=== PATIENT | female | born 1945 | race Caucasian/White ===

== ENCOUNTER 2021-06-18 12:36 | Inpatient (IN) | payer MEDICARE, SELFPAY ==
--- NOTE | ~2021-06-18 | US_ITS ---
EXAMINATION: US EXTRACRANIAL CAROTID DUPLEX, BILATERAL CLINICAL INFORMATION: Dizziness. COMPARISON: None TECHNIQUE: Real-time ultrasound and Doppler techniques (integrating B-mode 2-D vascular images, Doppler spectral analysis and color-flow Doppler imaging) were utilized to interrogate the extracranial carotid arteries, the vertebral arteries and proximal subclavian arteries bilaterally. The degree of stenosis is determined by criteria similar to NASCET. FINDINGS: Right Side: 1. There is mild atherosclerotic plaque seen in the bifurcation/proximal ICA region. 2. The common carotid artery PSV proximally is 81.8 cm/s and distally 76.8 cm/s. 3. The proximal internal carotid artery velocities are 54.6 cm/s systolic and 11.2 cm/s diastolic. 4. The proximal external carotid artery PSV is 93.8 cm/s. 5. The vertebral artery shows antegrade flow. 6. The subclavian artery waveforms are normal. Left Side: 1. There is mild atherosclerotic plaque seen in the bifurcation/proximal ICA region. 2. The common carotid artery PSV proximally is 130 cm/s and distally 63.7 cm/s. 3. The proximal internal carotid artery velocities are 61.1 cm/s systolic and 13.7 cm/s diastolic. 4. The proximal external carotid artery PSV is 83.4 cm/s. 5. The vertebral artery shows antegrade flow. 6. The subclavian artery waveforms are normal. US/US carotid duplex BI IMPRESSION: 1. RIGHT: Minimal, non-hemodynamically significant stenosis of the proximal right internal carotid artery corresponding to a 0-49% stenosis by velocity criteria. 2. LEFT: Minimal, non-hemodynamically significant stenosis of the proximal left internal carotid artery corresponding to a 0-49% stenosis by velocity criteria. 3. Both vertebral arteries are patent, show antegrade flow.
--- NOTE | ~2021-06-18 | CT_ITS ---
EXAMINATION: CT HEAD WITHOUT CONTRAST CLINICAL INFORMATION: Dizziness and blurry vision, worse in the past few months. COMPARISON: 11/22/2010 TECHNIQUE: Contiguous axial imaging was performed from the skull base to vertex without intravenous contrast. This CT examination was performed using dose optimization techniques as appropriate, variously including the following: * Automated exposure control * Adjustment of mA and/or kV according to patient size (this includes techniques or standardized protocols for targeted exams where dose is matched to indication/reason for exam; i.e. extremities or head) Use of iterative reconstruction technique DLP: 716 mGy-cm. FINDINGS: There is no evidence of acute intracranial hemorrhage or territorial infarction. No abnormal mass effect or midline shift is seen. Quez[place] to white matter differentiation is well preserved. No extra-axial fluid collections are identified. No hydrocephalus. Proportional prominence of the ventricles and sulcal spaces is consistent with mild volume loss. Patchy periventricular and deep white matter hypoattenuation is consistent with mild small vessel ischemic changes. The osseous structures and soft tissues are normal. The mastoid air cells and visualized portions of the paranasal sinuses are well aerated. CT/CT head/brain wo con IMPRESSION: No acute intracranial pathology. Mild volume loss with small vessel ischemic changes.
--- NOTE | ~2021-06-18 | XR_ITS ---
EXAMINATION: XR HIP, LEFT CLINICAL INFORMATION: Fall with left hip/buttocks posterior pain COMPARISON: None TECHNIQUE: Two views of the left hip. Frontal view of the pelvis. FINDINGS: There is no fracture or dislocation. The femoral heads are well-seated within their acetabula. Mild degenerative changes of the hips with subchondral sclerosis present. The pelvic rim is intact. The sacroiliac joints and pubic symphysis are intact. The bowel gas pattern is unremarkable. XR/XR hip LT w PEL1V IMPRESSION: No acute abnormality. Mild degenerative changes of the hips.
--- NOTE | ~2021-06-18 | XR_ITS ---
EXAMINATION: XR CHEST CLINICAL INFORMATION: Dizziness and blurry vision for months COMPARISON: None TECHNIQUE: Frontal view of the chest was obtained. FINDINGS: Cardiac leads overlie the chest. The lungs are well expanded. There is no focal consolidation, edema, or effusion. No pneumothorax. The cardiomediastinal silhouette is within normal limits of size with a calcified aorta. No acute osseous abnormality. XR/XR chest 1V IMPRESSION: Clear lungs.
[2021-06-18 12:59] VITALS: BP 99/62; PULSE 78; RESP 20; TEMP 36.6; O2SAT 97; BMI 25.0
[2021-06-18 15:40] LABS: MANUAL DIFF FLAG NO
[2021-06-18 15:41] LABS: Basophils Percent Auto 0.3 % (0-2); Eosinophils Percent Auto 0.5 % (0-4); Hematocrit 38.5 % (37-47); Hemoglobin 12.4 g/dl (12.0-16.0); Imm Gran Abs Auto 0.02 X10*3/uL (0.00-0.03); Imm Gran Pct Auto 0.3 % (0.0-0.4); Lymphocytes Percent Auto 16.1 % (20-40); Mean Corpuscular HGB Conc 32.2 g/dl (31.0-35.0); Mean Platelet Volume 10.9 fL (9.4-12.3); Monocytes Absolute Auto 0.4 X10*3/uL (0.1-1.2); Monocytes Percent Auto 6.6 % (2-11); Neutrophils Absolute Auto 4.5 X10*3/uL (2.0-8.3); Neutrophils Percent Auto 76.2 % (45-73); Platelet Count 152 X10*3/uL (160-400); Red Blood Count 4.28 X10*6/uL (4.20-5.50); Red Cell Distribution Width 15.4 % (11.0-16.0); White Blood Count 5.9 X10*3/uL (4.8-10.8)
[2021-06-18 16:08] LABS: Anion Gap 13 (12-20); Blood Urea Nitrogen 23 mg/dL (9-16); Calcium 9.7 mg/dL (8.4-10.2); Carbon Dioxide 25 mmol/L (22-29); Chloride 109 mmol/L (96-108); Estimated Glomerular Filt Rate 40; Glucose Random 91 mg/dL (60-115); Potassium 4.3 mmol/L (3.3-5.1); Sodium 143 mmol/L (135-145)
--- NOTE | 2021-06-18 16:40 | ECG_ITS ---
Test Reason : DIZZINESS Blood Pressure : / mmHG Vent. Rate : 071 BPM Atrial Rate : 071 BPM P-R Int : 164 ms QRS Dur : 082 ms QT Int : 410 ms P-R-T Axes : 065 004 058 degrees QTc Int : 445 ms Normal sinus rhythm Minimal voltage criteria for LVH, may be normal variant Nonspecific ST abnormality Abnormal ECG No previous ECGs available Referred By: Hyacinth Chávez Electronically Signed By:ALEKSANDAR RODRIGUEZ
[2021-06-18 16:59] LABS: Alanine Aminotransferase 11 U/L (0-31); Albumin Level 4.1 g/dL (3.5-5.0); Alkaline Phosphatase 82 U/L (39-117); Aspartate Amino Transferase 17 U/L (5-31); Bilirubin Direct 0.3 mg/dL (0.0-0.5); Bilirubin Total 0.9 mg/dL (0.0-1.0); Magnesium 2.2 mg/dL (1.6-2.6); Total Protein 7.3 g/dL (6.5-8.0)
[2021-06-18] MEDS: 0.9 % Sodium Chloride 1,000 ML 999 ML IVCONT ×3 (17:15→20:51)
--- NOTE | 2021-06-18 17:29 | ED.DIZZY ---
HPI - Dizziness General Chief Complaint: Dizziness Stated Complaint: Dizziness weakness Time Seen by Provider: 06/18/21 16:18 Source: patient and family (Son at bedside) Mode of arrival: ambulatory Limitations: no limitations History of Present Illness HPI Narrative: 76-year-old female with a past medical history of hypothyroidism and dizziness for the past few years presenting to the ED with her son with complaints of acute on chronic dizziness that has been worsening over the past few months. She reports she is unable to describe how the dizziness feels. But it makes her feel really unsteady when she is on her feet. It is daily all the time never goes away per the patient. She reports nothing makes the dizziness better nothing makes the dizziness worse. She reports this morning she was getting some water out of the Fridge and she fell onto her buttocks due to her dizziness. She reports associated blurry vision when she has this dizziness. It is making her ambulation worse and it is inhibiting her ability to safely live at home alone. She reports she has been seen by her PCP for this multiple times and has been prescribed meclizine and salt pills and no symptomatic relief. Patient denies any head trauma, headaches, vomiting, chest pain, shortness of breath, dyspnea on exertion, orthopnea, palpitations, focal weakness, abdominal pain, diarrhea, constipation, black or bloody stools, dysuria, hematuria or any other symptoms complaints or concerns at this time MD elicited complaint: dizziness and difficulty walking Onset (ago): month(s) Timing: gradual onset and constant Severity: similar to previous episodes Description: difficulty walking and ongoing History of similar symptoms: Yes Exacerbating factors: nothing Relieving factors: nothing Associated symptoms: other (Blurry vision) Related Data Allergies Allergy/AdvReac Type Severity Reaction Status Date / Time No Known Allergies Allergy Unverified 08/07/20 16:03 Review of Systems Review of Systems: Constitutional : No Fever, No Chills, No Night Sweats, No Fatigue, No Malaise ENT/Mouth : No Ear Pain, No Nasal Congestion, No Sinus Pain, No sore throat, No Rhinorrhea Eyes: No Eye Pain, No Swelling, No Redness, No Foreign Body, No Discharge, No Vision Changes Cardiovascular : No Chest Pain, No SOB, No Dyspnea on Exertion, No Orthopnea, No Palpitations Respiratory : No Cough, No Sputum, No Wheezing, No Dyspnea Gastrointestinal : No Nausea, No Vomiting, No Diarrhea, No Constipation, No abdominal Pain, No Hematochezia, No Melena Genitourinary : No Dysuria, No Urinary Frequency, No Urinary Incontinence, No Urgency, No Flank Pain Musculoskeletal : Positive left hip/buttocks pain, No Myalgias Skin : No lacerations Neuro : Positive dizziness with difficulty with walking and generalized weakness, No Focal weakness, No Numbness, No Paresthesias, No Loss of Consciousness, No Headache Yes all other systems are reviewed and are negative [facility] Past Medical History Attestation statement: The following information was validated with the patient. Medical History Dizziness Hypothyroid Social History Social History Advance Directives: No Advance Directives Information Provided: No Physical Exam Vital Signs: Vital Signs: Last Vital Signs Temp 97.6 F 06/18/21 20:52 Pulse 70 06/18/21 20:52 Resp 14 06/18/21 20:52 BP 192/75 H 06/18/21 20:52 Pulse Ox 98 06/18/21 20:52 Body Mass Index 25.0 Vital signs have been reviewed as normal and appeared to be correct. Blood pressure normal. Heart rate normal. Respiration rate normal. Temperature normal. Oxygen saturation normal. Appearance: Alert. Oriented X3. No acute distress. Head: Normal external exam. Normocephalic. Atraumatic. Able to rotate head bilaterally. Eyes: PERRLA. EOMI. No nystagmus noted. Conjunctiva and sclera normal. Eyelids normal. Corneal reflex normal. ENT: EAC normal. TM's Normal. Hearing normal. Pharynx normal. Uvula midline. tongue midline. Moist mucous membranes. No trismus noted. No drooling noted. No muffled voice noted. No nystagmus noted. Neck: Normal inspection. Neck supple. FROM. No adenopathy. Trachea midline. Thyroid Normal. No meningeal signs. No neck mass noted. CVS: Normal heart rate and rhythm. Heart sound normal. No murmurs noted. Pulses normal throughout. Respiratory: No respiratory distress. Painless inspiration. Breath sounds normal. No wheezes/rales/rhonchi noted. Chest nontender. No accessory muscle usage noted or decreased air movement noted. Abdomen: Soft and nontender. Bowel sounds normal in all 4 quadrants. No distention noted. No organomegaly noted. No visible injury noted. Back: No CVA tenderness. Full range of motion noted. Skin: Skin warm and dry. Normal skin color. Normal skin turgor. No rashes/lesions/lacerations noted. Extremities: No lower extremity edema. Extremities exhibit normal range of motion. Extremities nontender. Able to shrug shoulders bilaterally and keep up against resistance. Neuro: Oriented X 3. No motor deficit. No sensory deficit. Reflexes normal. Moving all extremities. No focal motor deficits. Cranial nerves II-XI intact bilaterally. Facial strength normal. Normal cognition. Speech normal. Patient very unsteady on her feet although no ataxia is noted. Strength 5/5 throughout. No pronator drift. No tremor noted. No fasciculations noted. No rigidity noted. Muscle tone normal throughout. No asterixis noted. [id number] test normal. Heel to mcdaniels test normal. Hand drop from overhead Misses face. NIHSS score 0. Course Course Course Narrative: 16:40pm - 76-year-old female presenting to the ED with complaints of acute on chronic dizziness that has been present for years worse within the past few months with associated blurry vision and difficulty walking. Today she had a fall due to her dizziness where she landed on her buttocks and is complaining of left hip/buttocks pain. Otherwise denies head injury or loss of consciousness. Is not on any blood thinners. On exam patient is alert and oriented x3. Not in any acute distress. She is able to get up from the bed by herself without any assistance than when she tries to walk she says she feels too dizzy and she feels like she is going to fall over therefore she sat back down although no ataxia was noted. NIH SS score would be 1 although patient symptoms started years and has been worse over the past few months not worse today therefore she is not a tPA candidate at this time. Otherwise lungs clear to auscultation. CV RRR. Abdomen is soft and nontender. No lower extremity edema is noted. Plan: Labs, chest x-ray, EKG, CT scan of brain without contrast, x-ray of left hip, orthostatic vitals. Provide a L of IV fluids then re-evaluate. Reevaluation(s) Reevaluation #1: - labs reviewed and patient's platelet count 152. Chloride 109. BUN 23. Troponin went from 7.6-18.7 although patient does not have any EKG changes and she denies any active chest pain. UA revealed 10-14 white blood cells although has 3+ epithelial cells this may be a dirty catch therefore will wait for urine culture and patient denied any urinary symptoms. - CT scan of brain revealed chronic changes no acute processes were noted. - chest x-ray clear and no acute processes noted. - x-ray of left hip within normal limits no acute processes noted. - patient had positive orthostatic vitals therefore I ordered 3 L of fluids. - due to patient with positive orthostatic hypotension and elevated troponin I spoke to Cardiology Dr. Curiel he reports that the patient can be admitted. I just discussed this patient with Dr. Tovar and she will be admitting at this time. Time: 22:02 [facility] Medical Records Attestation: I reviewed the patient's medical records. Lab Data Attestation: I reviewed the patient's lab results. Result diagrams: 06/18/21 15:36 06/18/21 15:36 Labs: Lab Results 06/18/21 06/18/21 06/18/21 Range/Units 15:36 15:36 17:14 WBC 5.9 (4.8-10.8) X10*3/uL RBC 4.28 (4.20-5.50) X10*6/uL Hgb 12.4 (12.0-16.0) g/dl Hct 38.5 (37-47) % MCV 90.0 (80-98) fL MCH 29.0 (27.0-33.0) pg MCHC 32.2 (31.0-35.0) g/dl RDW 15.4 (11.0-16.0) % Plt Count 152 L (160-400) X10*3/uL MPV 10.9 (9.4-12.3) fL Immature Gran % (Auto) 0.3 (0.0-0.4) % Neut % (Auto) 76.2 H (45-73) % Lymph % (Auto) 16.1 L (20-40) % [place] % (Auto) 6.6 (2-11) % Eos % (Auto) 0.5 (0-4) % Baso % (Auto) 0.3 (0-2) % Lymph # (Auto) 1.0 L (1.2-4.9) X10*3/uL [place] # (Auto) 0.4 (0.1-1.2) X10*3/uL Eos # (Auto) 0.0 (0.0-0.4) X10*3/uL Baso # (Auto) 0.0 (0.0-0.2) X10*3/uL Abs Immat Gran (auto) 0.02 (0.00-0.03) X10*3/uL Absolute Neuts (auto) 4.5 (2.0-8.3) X10*3/uL Absolute Nucleated RBC 0.000 (0.0-0.012) X10*3/uL Nucleated RBC % (auto) 0.0 (0.0-0.2) /100WBC Sodium 143 (135-145) mmol/L Potassium 4.3 (3.3-5.1) mmol/L Chloride 109 H (96-108) mmol/L Carbon Dioxide 25 (22-29) mmol/L Anion Gap 13 (12-20) BUN 23 H (9-16) mg/dL Creatinine 1.30 (0.5-1.4) mg/dL Estim Creat Clear Calc 36.0 Estimated GFR 40 Random Glucose 91 (60-115) mg/dL Calcium 9.7 (8.4-10.2) mg/dL Magnesium 2.2 (1.6-2.6) mg/dL Total Bilirubin 0.9 (0.0-1.0) mg/dL Direct Bilirubin 0.3 (0.0-0.5) mg/dL AST 17 (5-31) U/L ALT 11 (0-31) U/L Alkaline Phosphatase 82 (39-117) U/L Troponin I High Sens 7.6 (<3.5-17.0) ng/L Total Protein 7.3 (6.5-8.0) g/dL Albumin 4.1 (3.5-5.0) g/dL TSH 0.50 (0.32-4.0) uIU/mL Urine Color Urine Appearance Urine pH (5.0-8.0) Ur Specific [place] (1.005-1.025) Urine Protein (NEG-TRACE) MG/DL Urine Glucose (UA) (NEG) MG/DL Urine Ketones (NEG) MG/DL Urine Blood (NEG) Urine Nitrite (NEG) Ur Leukocyte Esterase (NEG) Urine RBC (0) /HPF Urine WBC (0-4) /HPF Ur Squamous Epith Cells /LPF Calcium Oxalate Crystal /LPF Urine Bacteria /LPF Urine Mucus /LPF 06/18/21 06/18/21 Range/Units 18:09 19:55 WBC (4.8-10.8) X10*3/uL RBC (4.20-5.50) X10*6/uL Hgb (12.0-16.0) g/dl Hct (37-47) % MCV (80-98) fL MCH (27.0-33.0) pg MCHC (31.0-35.0) g/dl RDW (11.0-16.0) % Plt Count (160-400) X10*3/uL MPV (9.4-12.3) fL Immature Gran % (Auto) (0.0-0.4) % Neut % (Auto) (45-73) % Lymph % (Auto) (20-40) % [place] % (Auto) (2-11) % Eos % (Auto) (0-4) % Baso % (Auto) (0-2) % Lymph # (Auto) (1.2-4.9) X10*3/uL [place] # (Auto) (0.1-1.2) X10*3/uL Eos # (Auto) (0.0-0.4) X10*3/uL Baso # (Auto) (0.0-0.2) X10*3/uL Abs Immat Gran (auto) (0.00-0.03) X10*3/uL Absolute Neuts (auto) (2.0-8.3) X10*3/uL Absolute Nucleated RBC (0.0-0.012) X10*3/uL Nucleated RBC % (auto) (0.0-0.2) /100WBC Sodium (135-145) mmol/L Potassium (3.3-5.1) mmol/L Chloride (96-108) mmol/L Carbon Dioxide (22-29) mmol/L Anion Gap (12-20) BUN (9-16) mg/dL Creatinine (0.5-1.4) mg/dL Estim Creat Clear Calc Estimated GFR Random Glucose (60-115) mg/dL Calcium (8.4-10.2) mg/dL Magnesium (1.6-2.6) mg/dL Total Bilirubin (0.0-1.0) mg/dL Direct Bilirubin (0.0-0.5) mg/dL AST (5-31) U/L ALT (0-31) U/L Alkaline Phosphatase (39-117) U/L Troponin I High Sens 18.7 H* D (<3.5-17.0) ng/L Total Protein (6.5-8.0) g/dL Albumin (3.5-5.0) g/dL TSH (0.32-4.0) uIU/mL Urine Color STRAW Urine Appearance CLEAR Urine pH 6.0 (5.0-8.0) Ur Specific [place] 1.015 (1.005-1.025) Urine Protein NEG (NEG-TRACE) MG/DL Urine Glucose (UA) NEG (NEG) MG/DL Urine Ketones 15 (NEG) MG/DL Urine Blood TRACE (NEG) Urine Nitrite NEG (NEG) Ur Leukocyte Esterase 1+ H (NEG) Urine RBC 0-2 (0) /HPF Urine WBC 10-14 H (0-4) /HPF Ur Squamous Epith Cells 3+ /LPF Calcium Oxalate Crystal 1+ /LPF Urine Bacteria 2+ /LPF Urine Mucus 2+ /LPF Imaging Data CT scan of brain without contrast/chest x-ray left hip x-ray: Attestation: I personally reviewed and interpreted this imaging study as follows: Radiologist's impression: FINDINGS: There is no evidence of acute intracranial hemorrhage or territorial infarction. No abnormal mass effect or midline shift is seen. [place] to white matter differentiation is well preserved. No extra-axial fluid collections are identified. No hydrocephalus. Proportional prominence of the ventricles and sulcal spaces is consistent with mild volume loss. Patchy periventricular and deep white matter hypoattenuation is consistent with mild small vessel ischemic changes. The osseous structures and soft tissues are normal. The mastoid air cells and visualized portions of the paranasal sinuses are well aerated. ? CT/CT head/brain wo con IMPRESSION: No acute intracranial pathology. Mild volume loss with small vessel ischemic changes. FINDINGS: There is no fracture or dislocation. The femoral heads are well-seated within their acetabula. Mild degenerative changes of the hips with subchondral sclerosis present. The pelvic rim is intact. The sacroiliac joints and pubic symphysis are intact. The bowel gas pattern is unremarkable. XR/XR hip LT w PEL1V IMPRESSION: FINDINGS: Cardiac leads overlie the chest. The lungs are well expanded. There is no focal consolidation, edema, or effusion. No pneumothorax. The cardiomediastinal silhouette is within normal limits of size with a calcified aorta. No acute osseous abnormality. XR/XR chest 1V IMPRESSION: Clear lungs. No acute abnormality. Mild degenerative changes of the hips. ECG Data Attestation: I personally reviewed and interpreted this ECG as follows: ECG interpretation date: 06/18/21 ECG interpretation time: 17:19 Interpretation: EKG normal sinus rhythm with ventricular rate of 71 with minimal voltage criteria for LVH may be normal variant nonspecific ST abnormalities no acute ischemic change are noted. No prior EKGs to compare to at this time. Critical Care Time Critical Care Time Critical Care Time: Yes Total Critical Care Time: 60 Attestation: I personally attest to this time spent taking care of the patient Discharge Plan Discharge Clinical Impression: Orthostatic hypotension, Dizziness, Elevated troponin, Fall Patient Disposition: Admitted As Inpatient
[2021-06-18 17:53] LABS: Troponin-I High Sensitivity 7.6 ng/L (<3.5-17.0)
[2021-06-18 18:08] VITALS: BP 206/88; PULSE 74
[2021-06-18 18:10] VITALS: BP 191/86; BP 69/43; PULSE 80; PULSE 86
[2021-06-18 18:14] VITALS: BP 167/87; PULSE 77; RESP 16; O2SAT 97
[2021-06-18 18:22] LABS: Glucose Urine UA NEG (NEG); Leukocyte Esterase Urine 1+ (NEG); Nitrite Urine NEG (NEG); Specific Gravity - Urine 1.015 (1.005-1.025); UACC Culture Trigger YES; Urine Blood TRACE (NEG); Urine Ketones 15 MG/DL (NEG); Urine Protein NEG (NEG-TRACE)
[2021-06-18 18:24] LABS: Appearance Urine CLEAR; Color Urine STRAW
[2021-06-18 18:35] LABS: Bacteria Urine 2+ /LPF; Calcium Oxalate Crystals Urine 1+ /LPF; Mucus Urine 2+ /LPF; RBC Urine 0-2 /HPF (0); Squamous Epithelial Cell Urine 3+ /LPF
[2021-06-18 19:39] VITALS: BP 197/84; PULSE 75; RESP 16; O2SAT 98
--- NOTE | 2021-06-18 19:47 | PC.NURSE ---
Patient toileted on commode with assistance, 2nd fluid bolus running now. patient continues to endorse dizziness.
[2021-06-18 20:30] LABS: Troponin-I High Sensitivity 18.7 ng/L (<3.5-17.0)
[2021-06-18 20:52] VITALS: BP 192/75; PULSE 70; RESP 14; TEMP 36.4; O2SAT 98
[2021-06-18 23:20] LABS: COVID-19 Test Negative (Negative)
[2021-06-19] VITALS (14 sets, daily range): BP systolic 74–193; BP diastolic 33–91; PULSE 46–110; RESP 16–19; TEMP 36.1–37.1; O2SAT 97–100
[2021-06-19] MEDS: cefTRIAXone sodium 1 GM in 0.9 % Sodium Chloride 50 ML IV (00:42)
[2021-06-19] MEDS: Lactated Ringers 1,000 ML 100 ML IVCONT ×2 (00:42→14:21)
[2021-06-19] MEDS: Heparin Sodium,Porcine 5,000 UNIT/ML VIAL 5000 UNIT SUBCUT ×2 (00:42→13:34)
[2021-06-19] MEDS: 0.9 % Sodium Chloride Flush 3 ML SYRINGE IVFLUSH (00:43)
--- NOTE | 2021-06-19 06:09 | PM.IMHP ---
History of Present Illness Date of Service: 06/18/21 Chief Complaint: Dizziness and fall Female with past medical history of chronic dizziness and hypothyroidism who presents to the hospital after experiencing a fall during a dizzy spell. Patient reports that she has been chronic dizzy but has progressively worsened over the last few months. Denies any vertigo, no chest pain, no palpitations, denies any nausea or vomiting associated with this dizziness, no change in vision and no hearing loss or tinnitus. She reports that today she went to grab something from the Fridge felt very dizzy and weak and brought herself to the floor without falling on her back or injuring her head. Patient reports no loss of consciousness, no palpitations prior or post this episode. She denies any abdominal pain, no urinary symptoms, no diarrhea constipation, reports that she eats and hydrates well but reports that her son does not believe she eats enough, she reports that she has small portions and usually eats half a sandwich for lunch and small amounts for other meals. Patient reports that she takes salt and meclizine for her history of dizziness with no improvement. On arrival to the ED hemodynamically stable but did have significant positive orthostatic vitals her burst pressure on supine was 190/82, blood pressure dropped to 167/70 to on sitting, blood pressure further significantly dropped to 93/45 on standing. Patient received 3 L of IV fluids in the ED and now blood pressures in the 130s over 70s supine To the ED labs were drawn which showed an elevated troponin initially 7.6 and increased to a seen 18.7, positive UA for leukocyte Estrace and WBC Cardiology was consulted and patient will be admitted under observation Imaging including head CT, chest x-ray, and hip pelvic x-ray were all negative Review of system otherwise negative, past medical history as Review of Systems Review of Systems: Yes all other systems are reviewed and are negative [facility] Medical History Dizziness Hypothyroid Social History Household Members: None Housing: House Do you presently have visiting nurse or other home services: No Patient Tobacco Use Status: Never used Tobacco Use of substances other than those prescribed or required for medical reasons: No Have you been hit, kicked, punched, or otherwise hurt by someone within the past year? If so, by whom?: No Do you feel safe in your current relationship?: No Current Relationship Is there a partner from a previous relationship who is making you feel unsafe now?: No Spiritual Healthcare Practices: no Shinto Healthcare Practices: no Cultural Healthcare Practices: no Advance Directives: No Advance Directives Information Provided: No Do you have thoughts of harming others: None Do you have a plan to hurt others: No Plan Recently lost weight without trying: No Nutrition Risks: No Nutritional Risk Patient : No : No Poor oral hygiene: No Meds Allergies Allergy/AdvReac Type Severity Reaction Status Date / Time No Known Allergies Allergy Unverified 08/07/20 16:03 Active Medications: Current Medications Generic Name Dose Route Start Last Admin Trade Name Freq PRN Reason Stop Dose Admin Acetaminophen 650 mg 06/18/21 23:57 Acetaminophen 325 Mg Tablet PO Q6H PRN Pain, Mild (Pain Scale 1-3) Docusate Sodium 100 mg 06/18/21 23:57 Docusate Sodium 100 Mg Capsule PO DAILY PRN Constipation Heparin Sodium (Porcine) 5,000 unit 06/18/21 23:57 06/19/21 00:42 Heparin Sodium,Porcine 5,000 Unit/Ml Vial SUBCUT 5,000 unit Q12H TODD Administration Lactated Ringer's 1,000 mls @ 100 mls/hr 06/18/21 23:57 06/19/21 00:42 Lr IVCONT 100 mls/hr .Q10H TODD Administration Ceftriaxone Sodium 1 gm/ 50 mls @ 100 mls/hr 06/19/21 01:00 06/19/21 01:26 Sodium Chloride IV Infused Q24H TODD Infusion Ondansetron HCl 4 mg 06/18/21 23:57 Ondansetron Hcl 4 Mg/2 Ml Vial IVPUSH Q8H PRN Nausea and Vomiting Sodium Chloride 3 ml 06/19/21 00:00 06/19/21 00:43 0.9 % Sodium Chloride Flush 3 Ml Syringe IVFLUSH 3 ml QSHIFT TODD Administration Home Medications Medication Instructions Recorded Confirmed Last Taken Type levothyroxine 100 mcg tablet 1 tab PO DAILY 06/18/21 06/18/21 Unknown History meclizine 12.5 mg tablet 1 tab PO TID PRN 06/18/21 06/18/21 Unknown History Physical Exam Vital Signs and Narrative: Vital Signs: Last Vital Signs Temp 96.9 F 06/19/21 03:23 Pulse 68 06/19/21 03:23 Resp 16 06/19/21 03:23 BP 193/77 H 06/19/21 03:23 Pulse Ox 99 06/19/21 03:23 Body Mass Index 25.0 Const: General: cooperative and no acute distress Orientation/consciousness: patient oriented x3 Eyes: General: appearance normal, both eyes and all related structures Pupils: Equal, round and reactive pupils present Resp: Effort & Inspection: normal respiratory effort and able to speak in complete sentences Auscultation: clear to auscultation bilaterally Cardio: Rate: regular rate Rhythm: regular rhythm GI: Palpation (GI): Soft to palpation Auscultation: normal bowel sounds Skin: General skin exam: no rashes or lesions noted Neuro: Other: No neurological deficit General: patient oriented x3 Cranial nerves: Yes Equal, round and reactive pupils present Cognition (Neuro): normal cognition Extrem: General: Yes normal to inspection and Yes no pedal edema Results Labs CBC and Chem 7: 06/18/21 15:36 06/18/21 15:36 Labs: Laboratory Results - last 24 hr 06/18/21 06/18/21 06/18/21 15:36 15:36 17:14 MCV 90.0 MCH 29.0 MCHC 32.2 RDW 15.4 Plt Count 152 L MPV 10.9 Immature Gran % (Auto) 0.3 Neut % (Auto) 76.2 H Lymph % (Auto) 16.1 L [place] % (Auto) 6.6 Eos % (Auto) 0.5 Baso % (Auto) 0.3 Lymph # (Auto) 1.0 L [place] # (Auto) 0.4 Eos # (Auto) 0.0 Baso # (Auto) 0.0 Abs Immat Gran (auto) 0.02 Absolute Neuts (auto) 4.5 Absolute Nucleated RBC 0.000 Nucleated RBC % (auto) 0.0 Anion Gap 13 Estim Creat Clear Calc 36.0 Estimated GFR 40 Random Glucose 91 Calcium 9.7 Magnesium 2.2 Total Bilirubin 0.9 Direct Bilirubin 0.3 AST 17 ALT 11 Alkaline Phosphatase 82 Troponin I High Sens 7.6 Total Protein 7.3 Albumin 4.1 TSH 0.50 Urine Color Urine Appearance Urine pH Ur Specific [place]blem Urine Protein Urine Glucose (UA) Urine Ketones Urine Blood Urine Nitrite Ur Leukocyte Esterase Urine RBC Urine WBC Ur Squamous Epith Cells Calcium Oxalate Crystal Urine Bacteria Urine Mucus COVID-19 (MAXINE) COVID-19 Clin Com 06/18/21 06/18/21 06/18/21 18:09 19:55 22:58 MCV MCH MCHC RDW Plt Count MPV Immature Gran % (Auto) Neut % (Auto) Lymph % (Auto) [place] % (Auto) Eos % (Auto) Baso % (Auto) Lymph # (Auto) [place] # (Auto) Eos # (Auto) Baso # (Auto) Abs Immat Gran (auto) Absolute Neuts (auto) Absolute Nucleated RBC Nucleated RBC % (auto) Anion Gap Estim Creat Clear Calc Estimated GFR Random Glucose Calcium Magnesium Total Bilirubin Direct Bilirubin AST ALT Alkaline Phosphatase Troponin I High Sens 18.7 H* D Total Protein Albumin TSH Urine Color STRAW Urine Appearance CLEAR Urine pH 6.0 Ur Specific [place] 1.015 Urine Protein NEG Urine Glucose (UA) NEG Urine Ketones 15 Urine Blood TRACE Urine Nitrite NEG Ur Leukocyte Esterase 1+ H Urine RBC 0-2 Urine WBC 10-14 H Ur Squamous Epith Cells 3+ Calcium Oxalate Crystal 1+ Urine Bacteria 2+ Urine Mucus 2+ COVID-19 (MAXINE) Negative COVID-19 Clin Com See Note ECG Interpretation: Normal sinus rhythm, nonspecific ST abnormalities Imaging Radiologist's Impressions: Impressions Head CT 06/18/21 16:40 IMPRESSION: No acute intracranial pathology. Mild volume loss with small vessel ischemic changes. Chest X-Ray 06/18/21 16:42 IMPRESSION: Clear lungs. Hip/Pelvis X-Ray 06/18/21 16:42 IMPRESSION: No acute abnormality. Mild degenerative changes of the hips. Assessment and Plan (1) Orthostatic hypotension: Status: Acute (2) Dizziness: Status: Acute (3) Elevated troponin: Status: Acute (4) Fall: Status: Acute (5) UTI (urinary tract infection): Status: Acute This is a 76-year-old female with history of chronic dizziness who presents to the hospital after a fall found to have significant orthostatic hypotension # for orthostatic hypotension - status post 3 L of fluid - patient reports good oral intake - will repeat her orthostatics in a.m. - patient has high blood pressure and supine position - if orthostatics still positive, consider r nephrology consult # dizziness - most likely secondary to orthostatic hypotension - will treat with IV fluid - monitor # elevated troponin - unclear etiology - EKG shows no evidence of ACS - admit to telemetry and consult Cardiology # fall - secondary to dizziness - no loss of conscious - physical therapy consult # hypothyroidism - continue levothyroxine DVT prophylaxis: Heparin subQ Quality Stroke Does the patient have a stroke diagnosis?: No VTE Prior VTE?: No VTE Risk Level:: Medical - moderate - high VTE Device Contraindication: Treatment Not Indicated VTE Drug Contraindication: N/A - Med Ordered
[2021-06-19 06:25] LABS: MANUAL DIFF FLAG NO
[2021-06-19 06:57] LABS: Basophils Percent Auto 0.4 % (0-2); Eosinophils Absolute Auto 0.1 X10*3/uL (0.0-0.4); Eosinophils Percent Auto 3.1 % (0-4); Hemoglobin 11.3 g/dl (12.0-16.0); Imm Gran Abs Auto 0.01 X10*3/uL (0.00-0.03); Imm Gran Pct Auto 0.2 % (0.0-0.4); Lymphocytes Percent Auto 21.3 % (20-40); Mean Corpuscular HGB Conc 32.3 g/dl (31.0-35.0); Mean Corpuscular Hemoglobin 28.8 pg (27.0-33.0); Mean Corpuscular Volume 89.1 fL (80-98); Mean Platelet Volume 11.4 fL (9.4-12.3); Monocytes Absolute Auto 0.4 X10*3/uL (0.1-1.2); Monocytes Percent Auto 9.9 % (2-11); Neutrophils Absolute Auto 2.9 X10*3/uL (2.0-8.3); Neutrophils Percent Auto 65.1 % (45-73); Platelet Count 121 X10*3/uL (160-400); Red Blood Count 3.93 X10*6/uL (4.20-5.50); Red Cell Distribution Width 15.1 % (11.0-16.0); White Blood Count 4.5 X10*3/uL (4.8-10.8)
[2021-06-19 06:59] LABS: Anion Gap 10 (12-20); Blood Urea Nitrogen 15 mg/dL (9-16); Calcium 8.5 mg/dL (8.4-10.2); Carbon Dioxide 23 mmol/L (22-29); Chloride 112 mmol/L (96-108); Creatinine Clr Calc Pharmacy 54.3; Estimated Glomerular Filt Rate > 60; Glucose Random 82 mg/dL (60-115); Potassium 3.4 mmol/L (3.3-5.1); Sodium 142 mmol/L (135-145)
--- NOTE | 2021-06-19 10:58 | P.CONCA_ITS ---
History of Present Illness History of Present Illness Date of Service: 06/19/21 Consult reason: other (dizziness) Chief complaint: Orthostatic hypotension, r/o ACS, KORY Narrative: This is a cardiology consultation regarding dizzy spells. Based on review of prior documentation from [facility], it seems that she saw Dr. Calderón from Cardiology in 2018. At that time, according to his notes thought to have orthostatic hypotension. There was also a question of POTS syndrome but not clear if that was ever confirmed or not but it seems to suggest suspected. She has been tried on salt tablets and compression stockings but no major improvement in symptoms according to that. It seems that she also tried gabapentin but that caused some side effects to. In any case patient is still gets symptoms of dizziness which seem primary orthostatic in nature. Otherwise, she states that she was trying to make cereal with milk and at that time, she felt dizzy and she fell down. This seems orthostatic in nature. She does not have any other symptoms like angina or shortness of breath or palpitations or in fact anything else at all. No prior history of any coronary disease myocardial infarction. Review of Systems Review of Systems: Yes all other systems are reviewed and are negative Cardiovascular: Cardiovascular: Reports as per HPI, Reports no additional cardiovascular complaints, Denies acrocyanosis, Denies cool extremities, Denies painful fingertips, Denies chest pain, Denies chest pain at rest, Denies diaphoresis, Denies syncope, Denies irregular heart rhythm, Denies claudication, Denies leg edema, Reports lightheadedness, Denies palpitations and Denies dyspnea Respiratory: Respiratory: Denies dyspnea Neurologic: Denies syncope Endocrine: Endocrine: Denies palpitations [facility] Past Medical History Medical History Dizziness Hypothyroid Family History Family History (Updated 06/19/21 @ 11:01 by Bhavin Curiel MD) Father CAD (coronary artery disease) Social History Social History Household Members: None Housing: House Do you presently have visiting nurse or other home services: No Patient Tobacco Use Status: Never used Tobacco Use of substances other than those prescribed or required for medical reasons: No Currently Displaying Signs/Symptoms of Drug Intoxication Withdrawal: No Have you been hit, kicked, punched, or otherwise hurt by someone within the past year? If so, by whom?: No Do you feel safe in your current relationship?: No Current Relationship Is there a partner from a previous relationship who is making you feel unsafe now?: No Spiritual Healthcare Practices: no Rastafari Healthcare Practices: no Cultural Healthcare Practices: no Advance Directives: No Advance Directives Information Provided: No Do you have thoughts of harming others: None Do you have a plan to hurt others: No Plan Recently lost weight without trying: No Nutrition Risks: No Nutritional Risk Patient : No : No Poor oral hygiene: No Meds Allergies Allergy/AdvReac Type Severity Reaction Status Date / Time No Known Allergies Allergy Unverified 08/07/20 16:03 Active Medications: Current Medications Generic Name Dose Route Start Last Admin Trade Name Freq PRN Reason Stop Dose Admin Acetaminophen 650 mg 06/18/21 23:57 Acetaminophen 325 Mg Tablet PO Q6H PRN Pain, Mild (Pain Scale 1-3) Docusate Sodium 100 mg 06/18/21 23:57 Docusate Sodium 100 Mg Capsule PO DAILY PRN Constipation Heparin Sodium (Porcine) 5,000 unit 06/18/21 23:57 06/19/21 00:42 Heparin Sodium,Porcine 5,000 Unit/Ml Vial SUBCUT 5,000 unit Q12H TODD Administration Lactated Ringer's 1,000 mls @ 100 mls/hr 06/18/21 23:57 06/19/21 10:57 Lr IVCONT Infused .Q10H TODD Infusion Ceftriaxone Sodium 1 gm/ 50 mls @ 100 mls/hr 06/19/21 01:00 06/19/21 01:26 Sodium Chloride IV Infused Q24H TODD Infusion Ondansetron HCl 4 mg 06/18/21 23:57 Ondansetron Hcl 4 Mg/2 Ml Vial IVPUSH Q8H PRN Nausea and Vomiting Sodium Chloride 3 ml 06/19/21 00:00 06/19/21 09:14 0.9 % Sodium Chloride Flush 3 Ml Syringe IVFLUSH Not Given QSHIFT [facility] Home Medications Medication Instructions Recorded Confirmed Last Taken Type levothyroxine 100 mcg tablet 1 tab PO DAILY 06/18/21 06/18/21 Unknown History meclizine 12.5 mg tablet 1 tab PO TID PRN 06/18/21 06/18/21 Unknown History Physical Exam Vital Signs: Vital Signs: Last Vital Signs Temp 97.8 F 06/19/21 07:57 Pulse 110 H 06/19/21 08:59 Resp 18 06/19/21 07:57 BP 153/73 H 06/19/21 10:43 Pulse Ox 97 06/19/21 08:59 Body Mass Index 25.0 Const: General: cooperative and no acute distress HENMT: Other: Unremarkable Neck: Neck: Yes normal visual inspection Chest: Chest palpation & inspection: normal inspection of the chest Resp: Auscultation: clear to auscultation bilaterally, no crackles and no wheezes Cardio: Jugular venous distension: no JVD Palpation: normal PMI Heart sounds: S1 normal heart sound present, S2 normal heart sound present, no gallops, no murmurs and no rubs GI: Palpation (GI): Soft to palpation Back/Spine/Pelvis: Other: unremarkable Skin: General skin exam: no rashes or lesions noted Neuro: Cranial nerves: Yes Other cranial nerve findings present Extrem: General: Yes no clubbing, cyanosis or edema Psych: Mental Status: other Results Labs and Meds Result diagrams: 06/19/21 06:18 06/19/21 06:18 Lab results: Laboratory Results - last 24 hr 06/18/21 06/18/21 06/18/21 15:36 15:36 17:14 WBC 5.9 RBC 4.28 Hgb 12.4 Hct 38.5 MCV 90.0 MCH 29.0 MCHC 32.2 RDW 15.4 Plt Count 152 L MPV 10.9 Immature Gran % (Auto) 0.3 Neut % (Auto) 76.2 H Lymph % (Auto) 16.1 L [place] % (Auto) 6.6 Eos % (Auto) 0.5 Baso % (Auto) 0.3 Lymph # (Auto) 1.0 L [place] # (Auto) 0.4 Eos # (Auto) 0.0 Baso # (Auto) 0.0 Abs Immat Gran (auto) 0.02 Absolute Neuts (auto) 4.5 Absolute Nucleated RBC 0.000 Nucleated RBC % (auto) 0.0 Sodium 143 Potassium 4.3 Chloride 109 H Carbon Dioxide 25 Anion Gap 13 BUN 23 H Creatinine 1.30 Estim Creat Clear Calc 36.0 Estimated GFR 40 Random Glucose 91 Calcium 9.7 Magnesium 2.2 Total Bilirubin 0.9 Direct Bilirubin 0.3 AST 17 ALT 11 Alkaline Phosphatase 82 Troponin I High Sens 7.6 Total Protein 7.3 Albumin 4.1 TSH 0.50 Urine Color Urine Appearance Urine pH Ur Specific [place] Urine Protein Urine Glucose (UA) Urine Ketones Urine Blood Urine Nitrite Ur Leukocyte Esterase Urine RBC Urine WBC Ur Squamous Epith Cells Calcium Oxalate Crystal Urine Bacteria Urine Mucus COVID-19 (MAXINE) COVID-19 Clin Com 06/18/21 06/18/21 06/18/21 18:09 19:55 22:58 WBC RBC Hgb Hct MCV MCH MCHC RDW Plt Count MPV Immature Gran % (Auto) Neut % (Auto) Lymph % (Auto) [place] % (Auto) Eos % (Auto) Baso % (Auto) Lymph # (Auto) [place] # (Auto) Eos # (Auto) Baso # (Auto) Abs Immat Gran (auto) Absolute Neuts (auto) Absolute Nucleated RBC Nucleated RBC % (auto) Sodium Potassium Chloride Carbon Dioxide Anion Gap BUN Creatinine Estim Creat Clear Calc Estimated GFR Random Glucose Calcium Magnesium Total Bilirubin Direct Bilirubin AST ALT Alkaline Phosphatase Troponin I High Sens 18.7 H* D Total Protein Albumin TSH Urine Color STRAW Urine Appearance CLEAR Urine pH 6.0 Ur Specific [place] 1.015 Urine Protein NEG Urine Glucose (UA) NEG Urine Ketones 15 Urine Blood TRACE Urine Nitrite NEG Ur Leukocyte Esterase 1+ H Urine RBC 0-2 Urine WBC 10-14 H Ur Squamous Epith Cells 3+ Calcium Oxalate Crystal 1+ Urine Bacteria 2+ Urine Mucus 2+ COVID-19 (MAXINE) Negative COVID-19 Clin Com See Note 06/19/21 06/19/21 06:18 06:18 WBC 4.5 L RBC 3.93 L Hgb 11.3 L Hct 35.0 L MCV 89.1 MCH 28.8 MCHC 32.3 RDW 15.1 Plt Count 121 L MPV 11.4 Immature Gran % (Auto) 0.2 Neut % (Auto) 65.1 Lymph % (Auto) 21.3 [place] % (Auto) 9.9 Eos % (Auto) 3.1 Baso % (Auto) 0.4 Lymph # (Auto) 1.0 L [place] # (Auto) 0.4 Eos # (Auto) 0.1 Baso # (Auto) 0.0 Abs Immat Gran (auto) 0.01 Absolute Neuts (auto) 2.9 Absolute Nucleated RBC 0.000 Nucleated RBC % (auto) 0.0 Sodium 142 Potassium 3.4 D Chloride 112 H Carbon Dioxide 23 Anion Gap 10 L BUN 15 Creatinine 0.86 Estim Creat Clear Calc 54.3 Estimated GFR > 60 Random Glucose 82 Calcium 8.5 D Magnesium Total Bilirubin Direct Bilirubin AST ALT Alkaline Phosphatase Troponin I High Sens Total Protein Albumin TSH Urine Color Urine Appearance Urine pH Ur Specific [place] Urine Protein Urine Glucose (UA) Urine Ketones Urine Blood Urine Nitrite Ur Leukocyte Esterase Urine RBC Urine WBC Ur Squamous Epith Cells Calcium Oxalate Crystal Urine Bacteria Urine Mucus COVID-19 (MAXINE) COVID-19 Clin Com ECG Interpretation: EKG EKG shows sinus rhythm at 71/Min; voltage criteria for left ventricular hypertrophy but otherwise unremarkable. Imaging Radiologist's impression: Impressions Head CT 06/18/21 16:40 IMPRESSION: No acute intracranial pathology. Mild volume loss with small vessel ischemic changes. Chest X-Ray 06/18/21 16:42 IMPRESSION: Clear lungs. Hip/Pelvis X-Ray 06/18/21 16:42 IMPRESSION: No acute abnormality. Mild degenerative changes of the hips. Assessment and Plan (1) Orthostatic hypotension: Status: Acute (2) Fall: Qualifiers: Encounter type: initial encounter Qualified Code(s): W19.XXXA - Unspecified fall, initial encounter Status: Acute (3) Elevated troponin: Status: Acute Initial high sensitivity troponin 7.6. Repeat is 18.7. EKG without any clear ischemia. Based on orthostatic blood pressures, they are clearly seems to be a drop suggesting orthostatic hypotension. She also has supine hypertension and hence is going to be difficult to treat. Can use compression stockings as she has had in the past. Usual fall precautions to be taken. To sleep somewhat in a incline again to avoid too much supine hypertension. She has had an echocardiogram in 2013 which showed normal LVEF at 60-65% and mild to moderate diastolic dysfunction. Otherwise, with regard to the slight elevation of tr oponin most likely from demand. Does not sound like ACS. We will follow up with you. Procedures Date of Service Date of Service: 06/19/21
--- NOTE | 2021-06-19 11:26 | CA_ITS ---
Transthoracic Echocardiogram Patient (Last, First, Middle): Millicent Osborne, Gender: Female Date of : 1945 Age: 76 Procedure Date: 06/19/2021 Procedure Type: Transthoracic Echocardiogram Location: [facility] [place] Height: 172.72 cm Weight: 74.84 kg BSA: 1.88 m2 Heart Rate: bpm Lock Up Worker: ASIA Referring MD: Bhavin Curiel MD Symptoms: Syncope, orthostatic hypotension Study Quality: Fair ECG Rhythm: Sinus Conclusions: - The left ventricular systolic function is normal. The calculated ejection fraction is 60% by biplane method. - There is mild aortic valve regurgitation. Findings Left Ventricle Normal left ventricular cavity size. There is mildly increased left ventricular wall thickness. The left ventricular systolic function is normal. The calculated ejection fraction is 60% by biplane method. There is no evidence of regional wall motion abnormalities. E/E prime ratio is between 8 and 15 consistent with indeterminate filling pressures. Evidence suggests grade I (mild) diastolic dysfunction. Right Ventricle Normal right ventricular cavity size and systolic function. Atria Both atria are normal in size. Aortic Valve There is a normal trileaflet aortic valve. There is no aortic valve stenosis. There is mild aortic valve regurgitation. Mitral Valve The mitral valve appears normal. There is trace mitral valve regurgitation. There is no mitral valve stenosis. Pulmonic Valve The pulmonic valve was not well visualized. Tricuspid Valve Normal tricuspid valve structure. There is trace tricuspid valve regurgitation. The pulmonary artery systolic pressure is normal. Great Vessels The aortic annulus, sinuses of valsalva, asc aorta, and aortic arch are normal in size. Venous The inferior vena cava is normal in size and collapses greater than 50% with inspiration. Pericardium/Pleural There is no evidence of pericardial effusion. Prior Study Comparison No prior study available for comparison. Measurements 2D Linear Measurements IVSd: 1.08 0.6-0.9/0.6-1.0 cm LVIDd: 3.72 3.9-5.3/4.2-5.9 cm LVIDd Index: 1.98 2.4-3.2/2.2-3.1 cm/m2 LVIDs: 2.42 2.0-3.6 cm LVPWd: 1.02 0.7-1.1 cm Ao Root: 3.30 2.1-3.5 cm LA Diam: 2.50 2.7-3.8/3.0-4.0 cm LAIDs Index: 1.33 1.5-2.3 cm/m2 LV Mass: 151.48 67-162/88-224 g LV Mass Index: 80.58 43-95/49-115 g/m2 LVOT Diam: 2.00 3.0+(-)1.3 cm 2D Systolic Function EF 4C: 55.40 >55% EF 2C: 64.50 >55% EF BiP: 59.70 >55% Mitral Valve MV Pk E: 0.61 MV PK A: 0.92 MV Decel Time: 224.00 E/A: 0.70 E'Lateral: 5.00 E'Medial: 4.13 E/E' Med: 14.70 E/E' Lat: 12.10 PHT: 66.00 MVA PHT: 3.33 Decel [place]: 2.70 Aortic Valve AoV Pk [place]: 1.38 AoV Mn [place]: 0.92 AoV VTI: 0.32 AoV Pk Grad: 8.00 Aov Mn Grad: 4.00 FRANK Cont.VTI: 2.22 AI Pk [place]: 4.92 AI [place]: 3.02 LVOT LVOT Pk [place]: 0.98 LVOT Mn [place]: 0.63 LVOT VTI: 0.23 LVOT Pk Grad: 4.00 LVOT Mn Grad: 2.00 LVOT Diam: 2.00 LVOT Area: 3.14 Diastolic Function MV Pk E: 0.61 MV Pk A: 0.92 E/A: 0.70 E'Medial: 4.13 E/E' Med: 14.70 E' Laterial: 5.00 E/E' Lat: 12.10 Right Ventricle TAPSE (mm): 2.89 Tricuspid Valve TR Pk [place]: 2.50 TR Pk Grad: 25.00 RA Press: 3.00 RVSP: 28.00 Great Vessels Aorta Ao Root-2D: 3.30 2.0-3.7 cm Ao Asc: 3.30 2.1-3.4 cm Ao Arch: 2.90 Updated in Other Vendor System with Status of Final Bhavin Curiel MD electronically signed on 06/19/2021 2:59:44 PM with status of Final
--- NOTE | 2021-06-19 11:52 | P.PNIM_ITS ---
Subjective Subjective Date of Service: 06/19/21 Interval History: Complaining of persistent lightheadedness worse with standing, even at lying flat denies vertigo, no weakness no speech impairment no visual impairment, offers no urinary symptoms. Review of Systems General no headache, no dizziness, no fever chills. CVS no chest pain, no palpitation. Respiratory no cough, no sob. Gastrointestinal no nausea no vomiting, no abdominal pain Physical Exam Vital Signs: Vital Signs: Last Vital Signs Temp 97.8 F 06/19/21 07:57 Pulse 110 H 06/19/21 08:59 Resp 18 06/19/21 07:57 BP 153/73 H 06/19/21 10:43 Pulse Ox 97 06/19/21 08:59 Body Mass Index 25.0 General resting in bed mild distress due to dizziness. Neck supple no JVD. CVS regular rate rhythm, Respiratory lungs clear to auscultation, no respiratory distress, no wheeze, no rhonchi. Gastrointestinal abdomen soft, nontender, bowel sounds audible, no guarding , no rigidity. Extremities no edema. Neuro nonfocal , speech clear. Skin no rash Objective Data Current Medications Generic Name Dose Route Start Last Admin Trade Name Freq PRN Reason Stop Dose Admin Acetaminophen 650 mg 06/18/21 23:57 Acetaminophen 325 Mg Tablet PO Q6H PRN Pain, Mild (Pain Scale 1-3) Docusate Sodium 100 mg 06/18/21 23:57 Docusate Sodium 100 Mg Capsule PO DAILY PRN Constipation Heparin Sodium (Porcine) 5,000 unit 06/18/21 23:57 06/19/21 00:42 Heparin Sodium,Porcine 5,000 Unit/Ml Vial SUBCUT 5,000 unit Q12H TODD Administration Lactated Ringer's 1,000 mls @ 100 mls/hr 06/18/21 23:57 06/19/21 10:57 Lr IVCONT Infused .Q10H TODD Infusion Ceftriaxone Sodium 1 gm/ 50 mls @ 100 mls/hr 06/19/21 01:00 06/19/21 01:26 Sodium Chloride IV Infused Q24H TODD Infusion Ondansetron HCl 4 mg 06/18/21 23:57 Ondansetron Hcl 4 Mg/2 Ml Vial IVPUSH Q8H PRN Nausea and Vomiting Sodium Chloride 3 ml 06/19/21 00:00 06/19/21 09:14 0.9 % Sodium Chloride Flush 3 Ml Syringe IVFLUSH Not Given QSHIFT [facility] Labs CBC & Chem 7: 06/19/21 06:18 06/19/21 06:18 Labs: Laboratory Results - last 24 hr 06/18/21 06/18/21 06/18/21 15:36 15:36 17:14 MCV 90.0 MCH 29.0 MCHC 32.2 RDW 15.4 Plt Count 152 L MPV 10.9 Immature Gran % (Auto) 0.3 Neut % (Auto) 76.2 H Lymph % (Auto) 16.1 L [place] % (Auto) 6.6 Eos % (Auto) 0.5 Baso % (Auto) 0.3 Lymph # (Auto) 1.0 L [place] # (Auto) 0.4 Eos # (Auto) 0.0 Baso # (Auto) 0.0 Abs Immat Gran (auto) 0.02 Absolute Neuts (auto) 4.5 Absolute Nucleated RBC 0.000 Nucleated RBC % (auto) 0.0 Anion Gap 13 Estim Creat Clear Calc 36.0 Estimated GFR 40 Random Glucose 91 Calcium 9.7 Magnesium 2.2 Total Bilirubin 0.9 Direct Bilirubin 0.3 AST 17 ALT 11 Alkaline Phosphatase 82 Troponin I High Sens 7.6 Total Protein 7.3 Albumin 4.1 TSH 0.50 Urine Color Urine Appearance Urine pH Ur Specific [place] Urine Protein Urine Glucose (UA) Urine Ketones Urine Blood Urine Nitrite Ur Leukocyte Esterase Urine RBC Urine WBC Ur Squamous Epith Cells Calcium Oxalate Crystal Urine Bacteria Urine Mucus COVID-19 (MAXINE) COVID-19 Clin Com 06/18/21 06/18/21 06/18/21 18:09 19:55 22:58 MCV MCH MCHC RDW Plt Count MPV Immature Gran % (Auto) Neut % (Auto) Lymph % (Auto) [place] % (Auto) Eos % (Auto) Baso % (Auto) Lymph # (Auto) [place] # (Auto) Eos # (Auto) Baso # (Auto) Abs Immat Gran (auto) Absolute Neuts (auto) Absolute Nucleated RBC Nucleated RBC % (auto) Anion Gap Estim Creat Clear Calc Estimated GFR Random Glucose Calcium Magnesium Total Bilirubin Direct Bilirubin AST ALT Alkaline Phosphatase Troponin I High Sens 18.7 H* D Total Protein Albumin TSH Urine Color STRAW Urine Appearance CLEAR Urine pH 6.0 Ur Specific [place] 1.015 Urine Protein NEG Urine Glucose (UA) NEG Urine Ketones 15 Urine Blood TRACE Urine Nitrite NEG Ur Leukocyte Esterase 1+ H Urine RBC 0-2 Urine WBC 10-14 H Ur Squamous Epith Cells 3+ Calcium Oxalate Crystal 1+ Urine Bacteria 2+ Urine Mucus 2+ COVID-19 (MAXINE) Negative COVID-19 Clin Com See Note 06/19/21 06/19/21 06:18 06:18 MCV 89.1 MCH 28.8 MCHC 32.3 RDW 15.1 Plt Count 121 L MPV 11.4 Immature Gran % (Auto) 0.2 Neut % (Auto) 65.1 Lymph % (Auto) 21.3 [place] % (Auto) 9.9 Eos % (Auto) 3.1 Baso % (Auto) 0.4 Lymph # (Auto) 1.0 L [place] # (Auto) 0.4 Eos # (Auto) 0.1 Baso # (Auto) 0.0 Abs Immat Gran (auto) 0.01 Absolute Neuts (auto) 2.9 Absolute Nucleated RBC 0.000 Nucleated RBC % (auto) 0.0 Anion Gap 10 L Estim Creat Clear Calc 54.3 Estimated GFR > 60 Random Glucose 82 Calcium 8.5 D Magnesium Total Bilirubin Direct Bilirubin AST ALT Alkaline Phosphatase Troponin I High Sens Total Protein Albumin TSH Urine Color Urine Appearance Urine pH Ur Specific [place] Urine Protein Urine Glucose (UA) Urine Ketones Urine Blood Urine Nitrite Ur Leukocyte Esterase Urine RBC Urine WBC Ur Squamous Epith Cells Calcium Oxalate Crystal Urine Bacteria Urine Mucus COVID-19 (MAXINE) COVID-19 Clin Com Microbiology Microbiology Results: Microbiology 06/18/21 18:25 Urine Culture - Preliminary Urine clean catch - Urine dunbar top No growth to date. Assessment and Plan (1) UTI (urinary tract infection): Status: Acute (2) Orthostatic hypotension: Status: Acute (3) Dizziness: Status: Acute (4) Elevated troponin: Status: Acute Assessment and Plan: 76-year-old female with history of chronic dizziness who presents to the hospital after a fall found to have significant orthostatic hypotension # Acute on ch dizziness Patient has chronic dizziness ongoing for several years, was followed by Cardiology and there was question of POTS syndrome , patient was tried on salt tablets and Jonnie stockings with no significant improvement, patient orthostatic studies are consistent with orthostatic hypotension, status post 3 L of IV fluid Will place patient on Jonnie stocking, advised to sit before standing, recommend to sleep with head elevated, continue tele monitor Case discussed with Dr. Curiel, he recommend carotid studies, will discuss use of Florinef/midodrin. # elevated troponin No chest pain, EKG shows no evidence of ACS, seen by Cardiology likely elevated troponin from demand, no further cardiac workup planned at this time. # fall - secondary to dizziness, no loss of conscious, physical therapy recommend short-term rehab to maximum function and safety # hypothyroidism - continue levothyroxine, stable TSH DVT prophylaxis:? Heparin subQ Quality Stroke Does the patient have a stroke diagnosis?: No VTE Prior VTE?: No VTE Risk Level:: Medical - moderate - high VTE Device Contraindication: Treatment Not Indicated VTE Drug Contraindication: N/A - Med Ordered
[2021-06-20] VITALS (12 sets, daily range): BP systolic 90–199; BP diastolic 60–92; PULSE 62–100; RESP 16–18; TEMP 36–36.7; O2SAT 97–99
[2021-06-20] MEDS: Lactated Ringers 1,000 ML 100 ML IVCONT (02:20)
[2021-06-20] MEDS: cefTRIAXone sodium 1 GM in 0.9 % Sodium Chloride 50 ML IV (02:20)
--- NOTE | 2021-06-20 11:07 | P.PNCA_ITS ---
Subjective Subjective Date of Service: 06/20/21 Interval history: Lying in bed and sleepy. Review of Systems Review of Systems Yes all other systems are reviewed and are negative Cardiovascular: Reports as per HPI, Reports no additional cardiovascular complaints, Denies acrocyanosis, Denies cool extremities, Denies painful fingertips, Denies chest pain, Denies chest pain at rest, Denies diaphoresis, Denies syncope, Denies irregular heart rhythm, Denies claudication, Denies leg edema, Reports lightheadedness, Denies palpitations and Denies dyspnea Respiratory: Denies dyspnea Denies syncope Endocrine: Denies palpitations Physical Exam Vital Signs: Last Vital Signs Temp 97.3 F 06/20/21 08:00 Pulse 64 06/20/21 08:00 Resp 16 06/20/21 08:00 BP 168/80 H 06/20/21 08:00 Pulse Ox 97 06/20/21 08:00 Body Mass Index 25.0 Const General: cooperative and no acute distress HENNE Other: Unremarkable Neck Neck: Yes normal visual inspection Chest Chest palpation & inspection: normal inspection of the chest Resp Auscultation: clear to auscultation bilaterally, no crackles and no wheezes Cardio Jugular venous distension: no JVD Palpation: normal PMI Heart sounds: S1 normal heart sound present, S2 normal heart sound present, no gallops, no murmurs and no rubs GI Palpation (GI): Soft to palpation Back/Spine/Pelvis Other: unremarkable Skin General skin exam: no rashes or lesions noted Neuro Cranial nerves: Yes Other cranial nerve findings present Extrem General: Yes no clubbing, cyanosis or edema Psych Mental Status: other Results Labs and Meds Result diagrams: 06/19/21 06:18 06/19/21 06:18 Imaging Radiologist's impression: Impressions Carotid Doppler Study 06/19/21 17:14 IMPRESSION: 1. RIGHT: Minimal, non-hemodynamically significant stenosis of the proximal right internal carotid artery corresponding to a 0-49% stenosis by velocity criteria. 2. LEFT: Minimal, non-hemodynamically significant stenosis of the proximal left internal carotid artery corresponding to a 0-49% stenosis by velocity criteria. 3. Both vertebral arteries are patent, show antegrade flow. Progress Note: A&P Assessment and plan (1) Orthostatic hypotension: Status: Acute (2) Fall: Status: Acute (3) Elevated troponin: Status: Acute Assessment and Plan: Initial high sensitivity troponin 7.6. Repeat is 18.7. EKG without any clear ischemia. Based on orthostatic blood pressures, they are clearly seems to be a drop suggesting orthostatic hypotension. She also has supine hypertension and hence is going to be difficult to treat. Can use compression stockings as she has had in the past. Usual fall precautions to be taken. To sleep somewhat in a inclined position to avoid too much supine hypertension. Start low dose Pr opranlol. Check Cortisol levels. Otherwise, with regard to the slight elevation of troponin most likely from demand. Does not sound like ACS. Fall Risk Details Current Medications: Current Medications Generic Name Dose Route Start Last Admin Trade Name Freq PRN Reason Stop Dose Admin Acetaminophen 650 mg 06/18/21 23:57 Acetaminophen 325 Mg Tablet PO Q6H PRN Pain, Mild (Pain Scale 1-3) Docusate Sodium 100 mg 06/18/21 23:57 Docusate Sodium 100 Mg Capsule PO DAILY PRN Constipation Heparin Sodium (Porcine) 5,000 unit 06/18/21 23:57 06/20/21 00:45 Heparin Sodium,Porcine 5,000 Unit/Ml Vial SUBCUT Not Given Q12H TODD Lactated Ringer's 1,000 mls @ 100 mls/hr 06/18/21 23:57 06/20/21 02:20 Lr IVCONT 100 mls/hr .Q10H TODD Administration Ceftriaxone Sodium 1 gm/ 50 mls @ 100 mls/hr 06/19/21 01:00 06/20/21 04:34 Sodium Chloride IV Infused Q24H TODD Infusion Ondansetron HCl 4 mg 06/18/21 23:57 Ondansetron Hcl 4 Mg/2 Ml Vial IVPUSH Q8H PRN Nausea and Vomiting Sodium Chloride 3 ml 06/19/21 00:00 06/20/21 08:16 0.9 % Sodium Chloride Flush 3 Ml Syringe IVFLUSH Not Given QSHIFT TODD Time Spent With Patient Time: Total time spent is greater than 50% in coordination of care (as documented) at patient's floor/unit and/or counseling patient: Time with patient: less than 15 minutes Progress Note: Quality Stroke Does the patient have a stroke diagnosis?: No Procedures Date of Service Date of Service: 06/20/21
--- NOTE | 2021-06-20 11:25 | HO.PM.IMPN ---
Subjective Subjective Date of Service: 06/20/21 Interval History: Patient noted to be sleepy this morning, later became more awake alert, denies dizziness, noted to have tachycardia when stood up to use the commode, RN noted patient is confused But at present answering questions appropriately. Review of Systems General no headache, no dizziness, no fever chills.? CVS no chest pain, no palpitation.? Respiratory no cough, no sob.? Gastrointestinal no nausea, no vomiting, no abdominal pain Physical Exam Vital Signs: Vital Signs: Last Vital Signs Temp 97.3 F 06/20/21 11:15 Pulse 70 06/20/21 11:15 Resp 18 06/20/21 11:15 BP 160/90 H 06/20/21 11:15 Pulse Ox 98 06/20/21 11:15 Body Mass Index 25.0 General? resting in bed , no acute distress Neck supple no JVD. CVS? regular rate rhythm, Respiratory lungs clear to auscultation, no respiratory distress, no wheeze, no rhonchi. Gastrointestinal abdomen soft, nontender, bowel sounds audible, no guarding , no rigidity. Extremities no edema. Neuro nonfocal , speech clear, face symmetrical, moving all 4 extremities Skin no rash Objective Data Current Medications Generic Name Dose Route Start Last Admin Trade Name Freq PRN Reason Stop Dose Admin Acetaminophen 650 mg 06/18/21 23:57 Acetaminophen 325 Mg Tablet PO Q6H PRN Pain, Mild (Pain Scale 1-3) Docusate Sodium 100 mg 06/18/21 23:57 Docusate Sodium 100 Mg Capsule PO DAILY PRN Constipation Heparin Sodium (Porcine) 5,000 unit 06/18/21 23:57 06/20/21 00:45 Heparin Sodium,Porcine 5,000 Unit/Ml Vial SUBCUT Not Given Q12H TODD Lactated Ringer's 1,000 mls @ 100 mls/hr 06/18/21 23:57 06/20/21 02:20 Lr IVCONT 100 mls/hr .Q10H TODD Administration Ceftriaxone Sodium 1 gm/ 50 mls @ 100 mls/hr 06/19/21 01:00 06/20/21 04:34 Sodium Chloride IV Infused Q24H TODD Infusion Ondansetron HCl 4 mg 06/18/21 23:57 Ondansetron Hcl 4 Mg/2 Ml Vial IVPUSH Q8H PRN Nausea and Vomiting Sodium Chloride 3 ml 06/19/21 00:00 06/20/21 08:16 0.9 % Sodium Chloride Flush 3 Ml Syringe IVFLUSH Not Given QSHIFT TODD Labs CBC & Chem 7: 06/19/21 06:18 06/19/21 06:18 Microbiology Microbiology Results: Microbiology 06/18/21 18:25 Urine Culture - Final Urine clean catch - Urine dunbar top No growth. Assessment and Plan (1) Orthostatic hypotension: Status: Acute (2) Dizziness: Status: Acute Assessment and Plan: 76-year-old female with history of chronic dizziness who presents to the hospital after a fall found to have significant orthostatic hypotension # Acute on chronic dizziness Persistent symptoms of dizziness, seems less pronounced this a.m. ?? Patient has chronic dizziness ongoing for several years, was followed by Cardiology and there was question of POTS syndrome , patient was tried on salt tablets and Jonnie stockings with no significant ?? improvement, patient orthostatic studies are consistent with orthostatic hypotension, status post 4 L of IV fluid ?? cont. Jonnie stocking, advised to sit before standing, recommend to sleep with head elevated, continue tele monitor Carotid ultrasound showed no significant stenosis, echocardiogram showed EF 60% no evidence of regional wall motion abnormality it showed grade 1 mild diastolic dysfunction, CT head negative normal electrolytes, and renal function will obtain cortisol level ?? Case discussed with Dr. Curiel, he recommend propranolol 10 mg twice daily Will obtain Nephro consultation # Initially thought to have UTI but urine culture showed no growth, will DC ceftriaxone # elevated troponin ?? No chest pain, EKG shows no evidence of ACS, echo showed no wall motion abnormality, seen by Cardiology likely elevated troponin from demand, no further cardiac workup planned at this time. # fall - secondary to dizziness, no loss of conscious, physical therapy recommend short-term rehab to maximize function and safety # hypothyroidism - continue levothyroxine, stable TSH DVT prophylaxis:? Heparin subQ Quality Stroke Does the patient have a stroke diagnosis?: No VTE Prior VTE?: No VTE Risk Level:: Medical - moderate - high VTE Device Contraindication: Treatment Not Indicated VTE Drug Contraindication: N/A - Med Ordered
[2021-06-20] MEDS: Heparin Sodium,Porcine 5,000 UNIT/ML VIAL 5000 UNIT SUBCUT (14:14)
--- NOTE | 2021-06-20 15:15 | MHC.CM.PN ---
Addendum entered by Jocelyn Bauer 06/20/21 15:29: TECHNICAL SALES SUPPORT SPECIALIST WILL ATTMPT TO SEE PATIENT TOMORROW AND CALL SON FOR GATHRERING MORE INFORMATION TO COMPLETE CASE MANAGEMENT ASSESSMENT AND DEVELOPE A DISCHARGE PLAN Original Note: NURSE TECHNICAL SALES SUPPORT SPECIALIST NOTE ELECTRONIC MEDICAL RECORD , ER NOTE HISTORY AND PHYSICAL AND NURSES NOTES . TO COMPLETE THIS ASSESSMENT, PATIENT CAME TO THE ER AMBULATORY WITH HER SON WITH HISTORY OF DIZZINESS ACUTE ON CHRONIC DIZZINESS THAT HAD BEEN WORSENING OVER THE PAST FEW MONTHS SHE FEELS UNSTEADY WHEN SHE IS ON HER FEET IT HAPPENS EVERY DAY AND DOES NOT GO AWAY THIS MORNING SHE FELL ON TO HER BUTTOCKS SHE REPORTED SECONDARY TO DIZZINESS AND BLURRY VISION EVALUATED BY PCP ANY TIMES AND PRESCRIED MEDZINE AND SALT PILLS. WHILE IN THE ER PATIENT PER DOCUMENTATION HAD POSITIVE ORTHSTATICS AND ELEVATED TROPONINES WHILE GETTING WATER FROM THE REFRIGERATOR BP WHILE SUPINE 190/82, BLODD PRESSURE DROPPED TO 167/70 WHEN SITTING AND FURTHER DROPPED TO 93/45 WHEN STNDING CO WORKWR WAS UNABLE TO MEET WITH PATIENT SHE WAS VERUANXIOUS, TODAY I ATTEMPTED TO SEE HER SEVERAL TIMES , SHE WAS VERY LETHARGIC AND SPOKE WITH LOW VOICE AND SHE WAS ABLE TO ANSWER TO HER NAME AND ADDRESS BUT THEN WOULD DRIFT OFF AND BE UNABLE TO ANSWER ANY QUESTIONS . I TRIED X2 TO REACH HER SON FOR MORE INFORMATION MESSAGE LEFT WITH MY NAME AND NUMBER REQUESTING CALL BACK
[2021-06-20] MEDS: 0.9 % Sodium Chloride Flush 3 ML SYRINGE IVFLUSH (15:44)
[2021-06-20] MEDS: Propranolol HCL 10 MG TABLET PO (20:46)
[2021-06-21] VITALS (14 sets, daily range): BP systolic 42–198; BP diastolic 30–93; PULSE 58–82; RESP 16–19; TEMP 35.8–36.6; O2SAT 96–99
[2021-06-21] MEDS: Heparin Sodium,Porcine 5,000 UNIT/ML VIAL 5000 UNIT SUBCUT ×2 (00:50→12:57)
[2021-06-21] MEDS: cefTRIAXone sodium 1 GM in 0.9 % Sodium Chloride 50 ML IV (02:35)
[2021-06-21] MEDS: 0.9 % Sodium Chloride Flush 3 ML SYRINGE IVFLUSH ×3 (02:36→17:35)
--- NOTE | 2021-06-21 08:40 | PM.PNNEP ---
Subjective Subjective Date of Service: 06/21/21 Interval history: Patient seen and examined consult dictated Physical Exam Vital Signs: Vital Signs: Last Vital Signs Temp 97.0 F 06/21/21 07:44 Pulse 59 06/21/21 07:44 Resp 19 06/21/21 07:44 BP 160/80 H 06/21/21 07:44 Pulse Ox 98 06/21/21 07:44 Body Mass Index 25.0 Objective Data Labs CBC & Chem 7: 06/19/21 06:18 06/19/21 06:18 Microbiology Microbiology Results: Microbiology 06/18/21 18:25 Urine clean catch - Urine dunbar top Urine Culture - Final No growth. Procedures Date of Service Date of Service: 07/21/21 Assessment & Plan Assessment and plan (1) Supine hypertension: Status: Acute (2) UTI (urinary tract infection): Status: Acute Assessment and Plan: doubt hypovolemia ? POTS syndrome suggest: plasma metanephrine random cortisol level red stocking avoid long acting antihypertensive agents midodrine Time Spent With Patient Time: Total time spent is greater than 50% in coordination of care (as documented) at patient's floor/unit and/or counseling patient: Progress Note: Quality Stroke Does the patient have a stroke diagnosis?: No
[2021-06-21] MEDS: Propranolol HCL 10 MG TABLET PO ×2 (09:05→21:45)
--- NOTE | 2021-06-21 11:11 | HO.PM.IMPN ---
Subjective Subjective Date of Service: 06/21/21 Interval History: Feeling better this a.m. no dizziness while lying,less dizziness with standing, no nausea, no vomiting communicating better this morning. Review of Systems General no headache, no dizziness, no fever chills.? CVS no chest pain, no palpitation.? Respiratory no cough, no sob.? Gastrointestinal no nausea, no vomiting, no abdominal pain Physical Exam Vital Signs: Vital Signs: Last Vital Signs Temp 97.0 F 06/21/21 07:44 Pulse 59 06/21/21 07:44 Resp 19 06/21/21 07:44 BP 160/80 H 06/21/21 07:44 Pulse Ox 98 06/21/21 07:44 Body Mass Index 25.0 General? resting i n bed , no acute d istress Neck suppl e no JVD. CVS? reg ular rate rhythm, Respiratory lungs clear to auscultat ion, no respirator y distress, no whe grace, no rhonchi. G astrointestinal ab domen soft, nonten yemi, bowel sounds audible, no guardi ng , no rigidity. Extremities no kamini ma. Neuro nonfocal , speech clear, f erika symmetrical, m oving all 4 extrem ities Skin no rash Objective Data Current Medications Generic Name Dose Route Start Last Admin Trade Name Freq PRN Reason Stop Dose Admin Acetaminophen 650 mg 06/18/21 23:57 Acetaminophen 325 Mg Tablet PO Q6H PRN Pain, Mild (Pain Scale 1-3) Docusate Sodium 100 mg 06/18/21 23:57 Docusate Sodium 100 Mg Capsule PO DAILY PRN Constipation Heparin Sodium (Porcine) 5,000 unit 06/18/21 23:57 06/21/21 00:50 Heparin Sodium,Porcine 5,000 Unit/Ml Vial SUBCUT 5,000 unit Q12H TODD Administration Ceftriaxone Sodium 1 gm/ 50 mls @ 100 mls/hr 06/19/21 01:00 06/21/21 03:44 Sodium Chloride IV Infused Q24H TODD Infusion Ondansetron HCl 4 mg 06/18/21 23:57 Ondansetron Hcl 4 Mg/2 Ml Vial IVPUSH Q8H PRN Nausea and Vomiting Propranolol HCl 10 mg 06/20/21 21:00 06/21/21 09:05 Propranolol Hcl 10 Mg Tablet PO 10 mg BID TODD Administration Protocol Sodium Chloride 3 ml 06/19/21 00:00 06/21/21 09:06 0.9 % Sodium Chloride Flush 3 Ml Syringe IVFLUSH 3 ml QSHIFT TODD Administration Labs CBC & Chem 7: 06/19/21 06:18 06/19/21 06:18 Microbiology Microbiology Results: Microbiology 06/18/21 18:25 Urine Culture - Final Urine clean catch - Urine dunbar top No growth. Assessment and Plan (1) Supine hypertension: Status: Acute (2) Orthostatic hypotension: Status: Acute (3) Dizziness: Status: Acute (4) Elevated troponin: Status: Acute (5) Hypothyroid: Status: Acute Assessment and Plan: 76-year-old female with history of chronic dizziness who presents to the hospital after a fall found to have significant orthostatic hypotension # Acute on chronic dizziness ?? dizziness improving no nausea,tolerating diet. ?? Patient has chronic dizziness ongoing for several years, was followed by Cardiology and there was question of POTS syndrome , patient was tried on salt tablets and Jonnie stockings with no significant ?? improvement, patient orthostatic studies are consistent with orthostatic hypotension, status post 4 L of IV fluid ?? cont. Jonnie stocking, advised to sit before standing, recommend to sleep with head elevated, continue tele monitor ?? Carotid ultrasound showed no significant stenosis, echocardiogram showed EF 60% no evidence of regional wall motion abnormality it showed grade 1 mild diastolic dysfunction, CT head negative ?? normal electrolytes, and renal function started on propranolol 10mg bid had 1 low bp reading cortisol level pend seen by Nephro they rec midorin and plasma metanephrins ordered ?? # Initially thought to have UTI but urine culture showed no growth, will DC ceftriaxone # Elevated troponin ?? No chest pain, EKG shows no evidence of ACS, echo showed no wall motion abnormality, seen by Cardiology likely elevated troponin from demand, no further cardiac workup planned at this time. # fall - secondary to dizziness, no loss of conscious, physical therapy recommend short-term rehab to maximize function and safety,spoke with case managment they are making arrangement for safe discharge # hypothyroidism - continue levothyroxine, stable TSH DVT prophylaxis:? Heparin subQ Quality Stroke Does the patient have a stroke diagnosis?: No VTE Prior VTE?: No VTE Risk Level:: Medical - moderate - high VTE Device Contraindication: Treatment Not Indicated VTE Drug Contraindication: N/A - Med Ordered
--- NOTE | 2021-06-21 11:38 | MHC.CM.PN ---
DISCHARGE PLAN STR-REFERRALS INIATED TO [facility] ) VS HOME WITH NEW REFERRAL TO THE [facility] FOR RN/HOME PT PCP DR CORBIN LOCKHART , SON LOOKING FOR HCP PT SAID SHE HAD ONE TRANSP-FAMILY ELECTRONIC MEDICAL RECORD REVIEWED ALONG WITH CASE DISCUSSED WITH STAFF NURSE AND HOSPITALIST, MET WITH PATIENT , TODAY SHE WAS AWAKE ALERT AND ORIENTATED X3 I EXPLAINED THE ROLE OF THE NURSE PAINTER ORDNANCE IN THE TRANSITION FROM THE HOSPITAL TO HOME , DISCUSSED THE IMPORTANCE OF HAVING A HEALTH CARE PROXY PATIENT REPORTED SHE HAS ONE ,WHEN TALKING WITH HER SON NATALIIA HE WAS NOTE SURE AND WILL LOOK FOR IT AND DISCUSS WITH OTHER FAMILY MEMBERS, PATIENT LIVES ALONE SHE HAS HAD CHRONIC DIZZINESS FOR ABOUT 6 YEARS AND PER HER PCP HAD MANY TESTS , SHE AND HER SON CONFIRM THAT IT HAS GOTTEN WORSE OVER THE LAST 6 MONTHS , TO THE DAYS WHEN SHE GOT DIZZY AND HAD VISUAL BLURRING AND FELL AND CAME TO THE HOSPITAL. . SHE LIVES ALONE IN A SECOND STORY APARTMENT, OVER THE LAST FEW MONTHS SHE DOES NOT GO DOWN STAIRS TO DO HER LAUNDRY HER SON (BRINGS OUT THE TRASH, DOES HER LAUNDRY AND GOES GROCERY SHOPPING FOR HER , SHE REPORTED AILEEN IS ABLE TO DOM HER OWN COOKING SMALL MEALS AND INDEPENDENT IN ADLS AND BATHING SHE HAS A CANE AND WALKER AT HOME BUT DOES NOT USE THEM , SHE HAS NO VNA / NO DME , NO SAW TAILER SERVICES IN THE HOME . DISCUSSED TWO OPTIONS 1. STR PER PHYSICAL THERAPIST RECOMMENDATIONS SHE ALLOWED ME TO MAKE TWO REFERRALS AFTER DISCUSSING THIS WITH HER SON NATALIIA BY PHONE TO [facility]. VS HOME WITH THE [facility] AND [facility] PHYSICAL THERAPIST PAINTER ORDNANCE TO CONTINUE TO FOLLOW
[2021-06-21] MEDS: Midodrine HCl 2.5 MG TABLET PO ×2 (14:14→21:46)
[2021-06-22] VITALS (14 sets, daily range): BP systolic 55–202; BP diastolic 38–87; PULSE 60–99; RESP 16–18; TEMP 35.5–36.6; O2SAT 94–99
[2021-06-22] MEDS: 0.9 % Sodium Chloride Flush 3 ML SYRINGE IVFLUSH ×4 (00:03→23:42)
[2021-06-22] MEDS: Heparin Sodium,Porcine 5,000 UNIT/ML VIAL 5000 UNIT SUBCUT ×3 (00:03→23:41)
--- NOTE | 2021-06-22 09:38 | MHC.CM.PN ---
PATIENT ASSIGNED HER SON HER HCP AGENT. COPY FAXED INTO [employer] FOR THIS ADMISSION AND ONE PLACED IN CHART. CASE MANAGEMENT FOLLOWING FOR DISCHARGE PLAN. CURRENTLY HOME WITH VNA VERSUS SHORT TERM REHAB.
[2021-06-22] MEDS: Midodrine HCl 2.5 MG TABLET PO ×3 (09:42→22:00)
--- NOTE | 2021-06-22 09:49 | PM.PNNEP ---
Subjective Subjective Date of Service: 06/22/21 Principal diagnosis: OH Interval history: Feeling better this a.m. no dizziness while lying,less dizziness with standing, no nausea, no vomiting communicating better this morning. Physical Exam Vital Signs: Vital Signs: Last Vital Signs Temp 97.5 F 06/22/21 08:00 Pulse 97 06/22/21 09:43 Resp 18 06/22/21 08:00 BP 157/67 H 06/22/21 09:43 Pulse Ox 96 06/22/21 08:00 Body Mass Index 25.0 Resp: Effort & Inspection: able to speak in complete sentences Auscultation: bronchial breath sounds bilateral Cardio: Jugular venous distension: no JVD Objective Data Labs CBC & Chem 7: 06/19/21 06:18 06/19/21 06:18 Labs: Laboratory Results - last 24 hr 06/21/21 06:47 Cortisol 14.6 Microbiology Microbiology Results: Microbiology 06/18/21 18:25 Urine clean catch - Urine dunbar top Urine Culture - Final No growth. Procedures Date of Service Date of Service: 06/22/21 Assessment & Plan Assessment and plan (1) Supine hypertension: Status: Acute (2) Orthostatic hypotension: Status: Acute Assessment and Plan: Orthostatic Hypotension with supine HTN ( SHOH) Agree with d/c Rowdy and will see about adding short acting BP med at bedtime; cont with behavoioral interventions: keep HOB; leg stockings may need to consider adding florineph depending on response to midiridne Challenging PT in regards on how best to manage SHOH; consider 24 hr ABPM as outpt Time Spent With Patient Time: Total time spent is greater than 50% in coordination of care (as documented) at patient's floor/unit and/or counseling patient: Time with patient: Greater than 35 minutes Progress Note: Quality Stroke Does the patient have a stroke diagnosis?: No
--- NOTE | 2021-06-22 13:41 | CONS_ITS ---
DATE OF SERVICE: 06/21/2021 HISTORY OF PRESENT ILLNESS: This is a 76-year-old patient presented to the hospital after a dizzy spell. She is currently noted to have orthostatic hypotension. The patient denies any chest pain or shortness of breath. Denies any nausea, vomiting, or diarrhea. On route to the emergency room, her blood pressure dropped from 167/72 to 93/45 on standing. She was given IV fluids. PAST MEDICAL HISTORY: Remarkable for chronic dizziness, hypothyroidism. MEDICATIONS: As an outpatient included levothyroxine and meclizine. ALLERGIES: SHE IS NOT ALLERGIC TO MEDICATIONS. SOCIAL HISTORY: Does not smoke. FAMILY HISTORY: Negative for kidney disease. REVIEW OF SYSTEM: 10-point review of system negative, except for pertinent in the history of present illness. PHYSICAL EXAMINATION: VITAL SIGNS: Blood pressure 160/80, heart rate 59, respiratory rate is 19, temperature 97. CONSTITUTIONAL: She looks her stated age, in no acute distress. NEUROLOGIC: She is alert, awake. HEAD: Atraumatic and normocephalic. NECK: Supple. LUNGS: Good air entry bilaterally. CARDIOVASCULAR: S1, S2. No rub. ABDOMEN: Soft, nontender. EXTREMITIES: No peripheral edema. LABS: Showed a white count 4.5, hemoglobin 11.3, platelet count is 121. Sodium 142, potassium 3.4, chloride 112, CO2 of 23, BUN 15, creatinine 0.86. IMPRESSION: 1. Supine hypertension. 2. Orthostatic hypotension. This is a patient with a combination of supine hypertension and orthostatic hypotension and will first need to rule out volume depletion, which seems to be unlikely after she received more than 4 L of IV fluid. I cannot exclude possibility of postural orthostatic tachycardia syndrome as there are notes that she had been seen by Cardiology for that. I would go ahead with BRUNA muñoz and will check a random cortisol level and plasma catecholamine as well. We will avoid long acting antihypertensive agents, and she might benefit from midodrine and fludrocortisone as well. Thank you for allowing me to participate in the care of this patient. Anthony Betancourt MD GF/MODL / [phone]
--- NOTE | 2021-06-22 14:35 | HO.PM.IMPN ---
Subjective Subjective Date of Service: 06/22/21 Interval History: Persistent dizziness, while sitting in bed patient feels dizzy, significant hypotension with standing. Review of Systems General no headache, persistent dizziness, no fever,no chills.? CVS no chest pain, no palpitation.? Respiratory no cough, no sob.? Gastrointestinal no nausea, no vomiting, no abdominal pain Physical Exam Vital Signs: Vital Signs: Last Vital Signs Temp 97.8 F 06/22/21 11:35 Pulse 61 06/22/21 11:35 Resp 18 06/22/21 11:35 BP 140/70 H 06/22/21 11:35 Pulse Ox 94 06/22/21 11:35 Body Mass Index 25.0 General? resting in bed, dizzy Neck supple ,no JVD. CVS? regular rate rhythm, Respiratory lungs clear to auscultation, no respiratory distress, no wheeze, no rhonchi. Gastrointestinal abdomen soft, nontender, bowel sounds audible, no guarding , no rigidity. Extremities no edema. Neuro nonfocal , speech clear, face symmetrical, moving all 4 extremities Skin no rash Objective Data Current Medications Generic Name Dose Route Start Last Admin Trade Name Freq PRN Reason Stop Dose Admin Acetaminophen 650 mg 06/18/21 23:57 Acetaminophen 325 Mg Tablet PO Q6H PRN Pain, Mild (Pain Scale 1-3) Docusate Sodium 100 mg 06/18/21 23:57 Docusate Sodium 100 Mg Capsule PO DAILY PRN Constipation Heparin Sodium (Porcine) 5,000 unit 06/18/21 23:57 06/22/21 11:49 Heparin Sodium,Porcine 5,000 Unit/Ml Vial SUBCUT 5,000 unit Q12H TODD Administration Midodrine 2.5 mg 06/21/21 15:00 06/22/21 09:42 Midodrine Hcl 2.5 Mg Tablet PO 2.5 mg TID TODD Administration Ondansetron HCl 4 mg 06/18/21 23:57 Ondansetron Hcl 4 Mg/2 Ml Vial IVPUSH Q8H PRN Nausea and Vomiting Sodium Chloride 3 ml 06/19/21 00:00 06/22/21 09:42 0.9 % Sodium Chloride Flush 3 Ml Syringe IVFLUSH 3 ml QSHIFT TODD Administration Labs CBC & Chem 7: 06/19/21 06:18 06/19/21 06:18 Labs: Laboratory Results - last 24 hr 06/21/21 06:47 Cortisol 14.6 Assessment and Plan (1) Supine hypertension: Status: Acute (2) Orthostatic hypotension: Status: Acute (3) Dizziness: Status: Acute (4) Hypothyroid: Status: Acute Assessment and Plan: 76-year-old female with history of chronic dizziness who presents to the hospital after a fall found to have significant orthostatic hypotension # Acute on chronic dizziness ?? Persistent symptoms of dizziness, blood pressures significantly drops with standing worse after starting propranolol therefore will DC propranolol, continue midodrine ?? Patient has chronic dizziness ongoing for several years, was followed by Cardiology and there was question of POTS syndrome , patient was tried on salt tablets and Jonnie stockings with no significant ?? improvement, patient orthostatic studies are consistent with orthostatic hypotension, status post 4 L of IV fluid ?? cont. Jonnie stocking, advised to sit before standing, recommend to sleep with head elevated, continue tele monitor ?? Carotid ultrasound showed no significant stenosis, echocardiogram showed EF 60% no evidence of regional wall motion abnormality it showed grade 1 mild diastolic dysfunction, CT head negative ?? normal electrolytes, and renal function cortisol level and metanephrines pending ?? Case discussed with Nephrology they will recommend short-acting BP med at bedtime, 24 hour ABPM as outpt #? Initially thought to have UTI but urine culture showed no growth. # elevated troponin ?? No chest pain, EKG shows no evidence of ACS, echo showed no wall motion abnormality, seen by Cardiology likely elevated troponin from demand, no further cardiac workup planned at this time. # fall - secondary to dizziness, no loss of conscious, physical therapy recommend short-term rehab to maximize function and safety. # hypothyroidism - continue levothyroxine, stable TSH DVT prophylaxis:? Heparin subQ Quality Stroke Does the patient have a stroke diagnosis?: No VTE Prior VTE?: No VTE Risk Level:: Medical - moderate - high VTE Device Contraindication: Treatment Not Indicated VTE Drug Contraindication: N/A - Med Ordered
[2021-06-22] MEDS: Docusate Sodium 100 MG CAPSULE PO (22:00)
[2021-06-23] VITALS (12 sets, daily range): BP systolic 62–154; BP diastolic 33–69; PULSE 58–95; RESP 16–19; TEMP 36.1–36.7; O2SAT 95–98
[2021-06-23] MEDS: Levothyroxine Sodium 100 MCG TABLET PO (06:24)
[2021-06-23] MEDS: Midodrine HCl 2.5 MG TABLET PO ×3 (09:52→20:47)
[2021-06-23] MEDS: 0.9 % Sodium Chloride Flush 3 ML SYRINGE IVFLUSH ×2 (09:52→18:11)
[2021-06-23] MEDS: Docusate Sodium 100 MG CAPSULE PO (09:59)
[2021-06-23] MEDS: Fludrocortisone Acetate 0.1 MG TABLET PO (12:14)
[2021-06-23] MEDS: Heparin Sodium,Porcine 5,000 UNIT/ML VIAL 5000 UNIT SUBCUT (12:14)
--- NOTE | 2021-06-23 14:09 | HO.PM.IMPN ---
Subjective Subjective Date of Service: 06/23/21 Interval History: Complaining of dizziness, no bowel movement since admission, denies abdominal pain no other acute issues overnight. Review of Systems General no headache, persistent dizziness, no fever,no chills.? CVS no chest pain, no palpitation.? Respiratory no cough, no sob.? Gastrointestinal no nausea, no vomiting, no abdominal pain Physical Exam Vital Signs: Vital Signs: Last Vital Signs Temp 96.9 F 06/23/21 12:00 Pulse 60 06/23/21 12:00 Resp 18 06/23/21 12:00 BP 103/45 L 06/23/21 12:00 Pulse Ox 95 06/23/21 12:00 Body Mass Index 25.0 ?General? resting in bed, dizzy Neck supple ,no JVD. C VS? regular rate r hythm, Respiratory lungs clear to au scultation, no res piratory distress, no wheeze, no rho nchi. Gastrointest inal abdomen soft, nontender, bowel sounds audible, no guarding , no rig idity. Extremities no edema. Neuro n onfocal , speech c lear, face symmetr ical, moving all 4 extremities Skin no rash Objective Data Current Medications Generic Name Dose Route Start Last Admin Trade Name Freq PRN Reason Stop Dose Admin Acetaminophen 650 mg 06/18/21 23:57 Acetaminophen 325 Mg Tablet PO Q6H PRN Pain, Mild (Pain Scale 1-3) Docusate Sodium 100 mg 06/18/21 23:57 06/23/21 09:59 Docusate Sodium 100 Mg Capsule PO 100 mg DAILY PRN Administration Constipation Fludrocortisone Acetate 0.1 mg 06/23/21 11:15 06/23/21 12:14 Fludrocortisone Acetate 0.1 Mg Tablet PO 0.1 mg DAILY TODD Administration Heparin Sodium (Porcine) 5,000 unit 06/18/21 23:57 06/23/21 12:14 Heparin Sodium,Porcine 5,000 Unit/Ml Vial SUBCUT 5,000 unit Q12H TODD Administration Levothyroxine Sodium 100 mcg 06/23/21 06:00 06/23/21 06:24 Levothyroxine Sodium 100 Mcg Tablet PO 100 mcg DAILY@0600 TODD Administration Midodrine 2.5 mg 06/21/21 15:00 06/23/21 09:52 Midodrine Hcl 2.5 Mg Tablet PO 2.5 mg TID TODD Administration Ondansetron HCl 4 mg 06/18/21 23:57 Ondansetron Hcl 4 Mg/2 Ml Vial IVPUSH Q8H PRN Nausea and Vomiting Sodium Chloride 3 ml 06/19/21 00:00 06/23/21 09:52 0.9 % Sodium Chloride Flush 3 Ml Syringe IVFLUSH 3 ml QSHIFT TODD Administration Labs CBC & Chem 7: 06/19/21 06:18 06/19/21 06:18 Assessment and Plan (1) Supine hypertension: Status: Acute (2) Orthostatic hypotension: Status: Acute (3) Dizziness: Status: Acute (4) Hypothyroid: Status: Acute Assessment and Plan: 76-year-old female with history of chronic dizziness who presents to the hospital after a fall found to have significant orthostatic hypotension # Acute on chronic dizziness ?? Persistent symptoms of dizziness, blood pressures significantly drops with standing , significant orthostatic hypotension continue midodrine, will add Florinef as per Nephro recommendation ?? cont. Jonnie stocking, advised to sit before standing, recommend to sleep with head elevated, continue tele monitor ?? Carotid ultrasound showed no significant stenosis, echocardiogram showed EF 60% no evidence of regional wall motion abnormality it showed grade 1 mild diastolic dysfunction, CT head negative ?? normal electrolytes, and renal function ?? cortisol level normal and metanephrines pending ?? # elevated troponin ?? No chest pain, EKG shows no evidence of ACS, echo showed no wall motion abnormality, seen by Cardiology likely elevated troponin from demand, no further cardiac workup planned at this time. # constipation will add stool softener # fall - secondary to dizziness, no loss of conscious, physical therapy recommend short-term rehab to maximize function and safety. # hypothyroidism - continue levothyroxine, stable TSH DVT prophylaxis:? Heparin subQ Quality Stroke Does the patient have a stroke diagnosis?: No VTE Prior VTE?: No VTE Risk Level:: Medical - moderate - high VTE Device Contraindication: Treatment Not Indicated VTE Drug Contraindication: N/A - Med Ordered
[2021-06-23] MEDS: Lactulose 20 GM/30 ML SOLUTION 15 GM PO (14:50)
--- NOTE | 2021-06-23 17:40 | P.PNNP_ITS ---
Subjective Subjective Date of Service: 06/23/21 Principal diagnosis: OH Interval history: Complaining of dizziness, no bowel movement since admission, denies abdominal pain no other acute issues overnight. Reveiewed with RN that PT becomes severely hypotensive when trying to stand as BP plummets Physical Exam Vital Signs: Vital Signs: Last Vital Signs Temp 97.9 F 06/23/21 15:17 Pulse 71 06/23/21 15:20 Resp 19 06/23/21 15:17 BP 62/45 L 06/23/21 15:20 Pulse Ox 97 06/23/21 15:17 Body Mass Index 25.0 Resp: Effort & Inspection: able to speak in complete sentences Auscultation: bronchial breath sounds bilateral Cardio: Jugular venous distension: no JVD Objective Data Labs CBC & Chem 7: 06/19/21 06:18 06/19/21 06:18 Microbiology Microbiology Results: Microbiology 06/18/21 18:25 Urine clean catch - Urine dunbar top Urine Culture - Final No growth. Procedures Date of Service Date of Service: 06/23/21 Assessment & Plan Assessment and plan (1) Supine hypertension: Status: Acute (2) Orthostatic hypotension: Status: Acute Assessment and Plan: Severe Orthostatic Hypotension with supine HTN ( SHOH) Severity of HO is dramatic with lack of incr HR and marked drop in BP with standing Recent ECHO does not show evid of LVOT REC: add florineph, cont midrdine, unable to treat supine HTN, may consider referral to [facility] in [place] given severity of [place] Time Spent With Patient Time: Total time spent is greater than 50% in coordination of care (as documented) at patient's floor/unit and/or counseling patient: Time with patient: 25 - 35 minutes Progress Note: Quality Stroke Does the patient have a stroke diagnosis?: No
[2021-06-24] VITALS (10 sets, daily range): BP systolic 81–194; BP diastolic 50–71; PULSE 60–77; RESP 16–18; TEMP 36.2–36.6; O2SAT 97–99
[2021-06-24] MEDS: Heparin Sodium,Porcine 5,000 UNIT/ML VIAL 5000 UNIT SUBCUT ×2 (00:35→14:10)
[2021-06-24] MEDS: 0.9 % Sodium Chloride Flush 3 ML SYRINGE IVFLUSH ×4 (00:38→20:58)
[2021-06-24] MEDS: Levothyroxine Sodium 100 MCG TABLET PO (05:07)
[2021-06-24] MEDS: Docusate Sodium 100 MG CAPSULE PO ×2 (08:12→21:00)
[2021-06-24] MEDS: Fludrocortisone Acetate 0.1 MG TABLET PO (08:12)
[2021-06-24] MEDS: Midodrine HCl 2.5 MG TABLET PO ×3 (08:12→20:58)
--- NOTE | 2021-06-24 11:51 | PM.PNNEP ---
Subjective Subjective Date of Service: 06/24/21 Principal diagnosis: OH Interval history: Reveiewed again with RN that PT becomes severely hypotensive when trying to stand as BP plummets Physical Exam Vital Signs: Vital Signs: Last Vital Signs Temp 97.1 F 06/24/21 11:25 Pulse 60 06/24/21 11:25 Resp 18 06/24/21 11:25 BP 173/66 H 06/24/21 11:25 Pulse Ox 99 06/24/21 11:25 Body Mass Index 25.0 Resp: Effort & Inspection: able to speak in complete sentences Auscultation: bronchial breath sounds bilateral Cardio: Jugular venous distension: no JVD Objective Data Labs CBC & Chem 7: 06/19/21 06:18 06/19/21 06:18 Microbiology Microbiology Results: Microbiology 06/18/21 18:25 Urine clean catch - Urine dunbar top Urine Culture - Final No growth. Procedures Date of Service Date of Service: 06/24/21 Assessment & Plan Assessment and plan (1) Supine hypertension: Status: Acute (2) Orthostatic hypotension: Status: Acute Assessment and Plan: Severe Orthostatic Hypotension with supine HTN ( SHOH) Severity of HO is dramatic with lack of incr HR and marked drop in BP with standing Recent ECHO does not show evid of LVOT REC: cont florineph, cont midrdine, unable to treat supine HTN, may consider referral to [facility] in [place] given severity of OH and degree of disability assoc with it to see if they have any other rec such as a trial of doxidropa ? Time Spent With Patient Time: Total time spent is greater than 50% in coordination of care (as documented) at patient's floor/unit and/or counseling patient: Progress Note: Quality Stroke Does the patient have a stroke diagnosis?: No
--- NOTE | 2021-06-24 14:30 | MHC.CM.PN ---
PER CONVERSATION WITH NATALIIA GAMBLE ([phone]) PATIENT HAS NOT BEEN VACCINATED AGAINST COVID-19 INFO RELAYED TO [facility], WHO IS ATTEMPTING AUTH.
--- NOTE | 2021-06-24 17:23 | HO.PM.IMPN ---
Subjective Subjective Date of Service: 06/24/21 Interval History: Complaining of persistent dizziness, no nausea vomiting no headache no other acute issues overnight Review of Systems General no headache, persistent dizziness, no fever,no chills.? CVS no chest pain, no palpitation.? Respiratory no cough, no sob.? Gastrointestinal no nausea, no vomiting, no abdominal pain Physical Exam Vital Signs: Vital Signs: Last Vital Signs Temp 97.8 F 06/24/21 16:00 Pulse 62 06/24/21 16:00 Resp 18 06/24/21 16:00 BP 149/62 H 06/24/21 16:00 Pulse Ox 98 06/24/21 16:00 Body Mass Index 25.0 General sitting comfortably in no acute distress. Neck supple no JVD. CVS regular rate rhythm, Respiratory lungs clear to auscultation, no respiratory distress, no wheeze, no rhonchi. Gastrointestinal abdomen soft, nontender, bowel sounds audible, no guarding , no rigidity. Extremities no edema. Neuro nonfocal Skin no rash Objective Data Current Medications Generic Name Dose Route Start Last Admin Trade Name Owenq PRN Reason Stop Dose Admin Acetaminophen 650 mg 06/18/21 23:57 Acetaminophen 325 Mg Tablet PO Q6H PRN Pain, Mild (Pain Scale 1-3) Docusate Sodium 100 mg 06/18/21 23:57 06/23/21 09:59 Docusate Sodium 100 Mg Capsule PO 100 mg DAILY PRN Administration Constipation Docusate Sodium 100 mg 06/23/21 21:00 06/24/21 08:12 Docusate Sodium 100 Mg Capsule PO 100 mg BID TODD Administration Fludrocortisone Acetate 0.1 mg 06/23/21 11:15 06/24/21 08:12 Fludrocortisone Acetate 0.1 Mg Tablet PO 0.1 mg DAILY TODD Administration Heparin Sodium (Porcine) 5,000 unit 06/18/21 23:57 06/24/21 14:10 Heparin Sodium,Porcine 5,000 Unit/Ml Vial SUBCUT 5,000 unit Q12H TODD Administration Levothyroxine Sodium 100 mcg 06/23/21 06:00 06/24/21 05:07 Levothyroxine Sodium 100 Mcg Tablet PO 100 mcg DAILY@0600 TODD Administration Midodrine 2.5 mg 06/21/21 15:00 06/24/21 14:10 Midodrine Hcl 2.5 Mg Tablet PO 2.5 mg TID TODD Administration Ondansetron HCl 4 mg 06/18/21 23:57 Ondansetron Hcl 4 Mg/2 Ml Vial IVPUSH Q8H PRN Nausea and Vomiting Sodium Chloride 3 ml 06/19/21 00:00 06/24/21 16:13 0.9 % Sodium Chloride Flush 3 Ml Syringe IVFLUSH 3 ml QSHIFT TODD Administration Labs CBC & Chem 7: 06/19/21 06:18 06/19/21 06:18 Assessment and Plan (1) Supine hypertension: Status: Acute (2) Orthostatic hypotension: Status: Acute (3) Dizziness: Status: Acute (4) Elevated troponin: Status: Acute Assessment and Plan: 76-year-old female with history of chronic dizziness who presents to the hospital after a fall found to have significant orthostatic hypotension # Acute on chronic dizziness ?? Persistent symptoms of dizziness, blood pressures significantly drops with standing , significant orthostatic hypotension ?? continue midodrine, and Florinef ?? cont. Jonnie stocking, advised to sit before standing, recommend to sleep with head elevated, continue tele monitor ?? Carotid ultrasound showed no significant stenosis, echocardiogram showed EF 60% no evidence of regional wall motion abnormality it showed grade 1 mild diastolic dysfunction, ?? CT head negative ?? normal electrolytes, and renal function ?? cortisol level normal and metanephrines pending Patient discharged to rehab facility waiting for insurance authorization ?? # elevated troponin ?? No chest pain, EKG shows no evidence of ACS, echo showed no wall motion abnormality, seen by Cardiology likely elevated troponin from demand, no further cardiac workup planned at ?? this time. # constipation continue stool softener # fall - secondary to dizziness, no loss of conscious, physical therapy recommend short-term rehab to maximize function and safety. # hypothyroidism - continue levothyroxine, stable TSH DVT prophylaxis:? Heparin subQ Quality Stroke Does the patient have a stroke diagnosis?: No VTE Prior VTE?: No VTE Risk Level:: Medical - moderate - high VTE Device Contraindication: Treatment Not Indicated VTE Drug Contraindication: N/A - Med Ordered
[2021-06-25] VITALS (13 sets, daily range): BP systolic 90–164; BP diastolic 57–78; PULSE 55–72; RESP 16–18; TEMP 35.6–36.8; O2SAT 96–99
[2021-06-25] MEDS: Heparin Sodium,Porcine 5,000 UNIT/ML VIAL 5000 UNIT SUBCUT ×2 (01:14→14:01)
[2021-06-25] MEDS: Levothyroxine Sodium 100 MCG TABLET PO (06:28)
[2021-06-25] MEDS: Fludrocortisone Acetate 0.1 MG TABLET PO (09:04)
[2021-06-25] MEDS: Midodrine HCl 2.5 MG TABLET PO ×3 (09:04→20:07)
[2021-06-25] MEDS: 0.9 % Sodium Chloride Flush 3 ML SYRINGE IVFLUSH ×3 (09:04→20:07)
[2021-06-25] MEDS: Docusate Sodium 100 MG CAPSULE PO ×2 (09:04→20:07)
--- NOTE | 2021-06-25 11:12 | HO.PM.IMPN ---
Subjective Subjective Date of Service: 06/25/21 Interval History: f/u on dizziness, no dizziness this morning Review of Systems General no headache, persistent dizziness, no fever,no chills.? CVS no chest pain, no palpitation.? Respiratory no cough, no sob.? Gastrointestinal no nausea, no vomiting, no abdominal pain Physical Exam Vital Signs: Vital Signs: Last Vital Signs Temp 96.8 F 06/25/21 07:52 Pulse 71 06/25/21 08:26 Resp 18 06/25/21 07:52 BP 103/58 L 06/25/21 08:26 Pulse Ox 98 06/25/21 07:52 Body Mass Index 25.0 Const: Other: ?General sitting comfortably in no acute distress.? Neck supple no JVD. CVS? regular rate rhythm, Respiratory lungs clear to auscultation, no respiratory distress, no wheeze, no rhonchi. Gastrointestinal abdomen soft, nontender, bowel sounds audible, no guarding , no rigidity. Extremities no? edema. Neuro nonfocal Skin no rash Objective Data Current Medications Generic Name Dose Route Start Last Admin Trade Name Owenq PRN Reason Stop Dose Admin Acetaminophen 650 mg 06/18/21 23:57 Acetaminophen 325 Mg Tablet PO Q6H PRN Pain, Mild (Pain Scale 1-3) Docusate Sodium 100 mg 06/18/21 23:57 06/23/21 09:59 Docusate Sodium 100 Mg Capsule PO 100 mg DAILY PRN Administration Constipation Docusate Sodium 100 mg 06/23/21 21:00 06/25/21 09:04 Docusate Sodium 100 Mg Capsule PO 100 mg BID TODD Administration Fludrocortisone Acetate 0.1 mg 06/23/21 11:15 06/25/21 09:04 Fludrocortisone Acetate 0.1 Mg Tablet PO 0.1 mg DAILY TODD Administration Heparin Sodium (Porcine) 5,000 unit 06/18/21 23:57 06/25/21 01:14 Heparin Sodium,Porcine 5,000 Unit/Ml Vial SUBCUT 5,000 unit Q12H TODD Administration Levothyroxine Sodium 100 mcg 06/23/21 06:00 06/25/21 06:28 Levothyroxine Sodium 100 Mcg Tablet PO 100 mcg DAILY@0600 TODD Administration Midodrine 2.5 mg 06/21/21 15:00 06/25/21 09:04 Midodrine Hcl 2.5 Mg Tablet PO 2.5 mg TID TODD Administration Ondansetron HCl 4 mg 06/18/21 23:57 Ondansetron Hcl 4 Mg/2 Ml Vial IVPUSH Q8H PRN Nausea and Vomiting Sodium Chloride 3 ml 06/19/21 00:00 06/25/21 09:04 0.9 % Sodium Chloride Flush 3 Ml Syringe IVFLUSH 3 ml QSHIFT TODD Administration Labs CBC & Chem 7: 06/19/21 06:18 06/19/21 06:18 Assessment and Plan (1) Dizziness: Status: Acute Assessment and Plan: 76-year-old female with history of chronic dizziness who presents to the hospital after a fall found to have significant orthostatic hypotension # Acute on chronic dizziness ?? d/to orthostatic hypotension ?? continue midodrine, and Florinef ?? cont. Jonnie stocking, advised to sit before standing, recommend to sleep with head elevated, continue tele monitor ?? Carotid ultrasound showed no significant stenosis, echocardiogram showed EF 60% no evidence of regional wall motion abnormality it showed grade 1 mild diastolic dysfunction, ?? CT head negative ?? normal electrolytes, and renal function ?? cortisol level normal and metanephrines pending To be discharged to rehab facility waiting for insurance authorization ?? # elevated troponin ?? No chest pain, EKG shows no evidence of ACS, echo showed no wall motion abnormality, seen by Cardiology likely elevated troponin from demand, no further cardiac workup planned at ?? this time. # constipation continue stool softener # fall - secondary to dizziness, no loss of conscious, physical therapy recommend short-term rehab to maximize function and safety. # hypothyroidism - continue levothyroxine, stable TSH DVT prophylaxis:? Heparin subQ Quality Stroke Does the patient have a stroke diagnosis?: No VTE Prior VTE?: No VTE Risk Level:: Medical - moderate - high VTE Device Contraindication: Treatment Not Indicated VTE Drug Contraindication: N/A - Med Ordered
--- NOTE | 2021-06-25 11:47 | PM.PNNEP ---
Subjective Subjective Date of Service: 06/25/21 Principal diagnosis: OH Interval history: Seen and examined. Events noted Cont dizziness and unable to stand d/t LHeadness Physical Exam Vital Signs: Vital Signs: Last Vital Signs Temp 96.8 F 06/25/21 11:21 Pulse 61 06/25/21 11:21 Resp 18 06/25/21 11:21 BP 163/69 H 06/25/21 11:21 Pulse Ox 99 06/25/21 11:21 Body Mass Index 25.0 Resp: Effort & Inspection: able to speak in complete sentences Auscultation: bronchial breath sounds bilateral Cardio: Jugular venous distension: no JVD Objective Data Labs CBC & Chem 7: 06/19/21 06:18 06/19/21 06:18 Microbiology Microbiology Results: Microbiology 06/18/21 18:25 Urine clean catch - Urine dunbar top Urine Culture - Final No growth. Procedures Date of Service Date of Service: 06/25/21 Assessment & Plan Assessment and plan (1) Supine hypertension: Status: Acute (2) Orthostatic hypotension: Status: Acute Assessment and Plan: Severe Orthostatic Hypotension with supine HTN ( SHOH) Severity of HO is dramatic with lack of incr HR and marked drop in BP with standing Recent ECHO does not show evid of LVOT REC: cont florineph and will lookk to titrae up; cont midrdine, unable to treat supine HTN, may consider referral to [facility] in [place] given severity of OH and degree of disability assoc with it to see if they have any other rec such as a trial of doxidropa ? Time Spent With Patient Time: Total time spent is greater than 50% in coordination of care (as documented) at patient's floor/unit and/or counseling patient: Progress Note: Quality Stroke Does the patient have a stroke diagnosis?: No
--- NOTE | 2021-06-25 12:12 | MHC.CM.PN ---
[facility] IS REQUESTING A CARDIAC FOLLOW UP REPORT. HOSPITALIST MADE AWARE. RN AWARE
--- NOTE | 2021-06-25 12:55 | PM.PNCARD ---
Subjective Subjective Date of Service: 06/25/21 Interval history: Still feeling dizzy off and on Physical Exam Vital Signs: Last Vital Signs Temp 96.8 F 06/25/21 11:21 Pulse 61 06/25/21 11:21 Resp 18 06/25/21 11:21 BP 163/69 H 06/25/21 11:21 Pulse Ox 99 06/25/21 11:21 Body Mass Index 25.0 GENERAL APPEARANCE: in no acute distress, pleasant. NECK: no carotid bruit, no jugular venous distention. SKIN: no suspicious lesions, warm and dry. HEART: no murmurs, regular rate and rhythm. LUNGS: clear to auscultation bilaterally. ABDOMEN: soft, nontender. EXTREMITIES: no edema. PERIPHERAL PULSES: equal. NEUROLOGIC: No gross deficits, AAO X 3 Results Labs and Meds Result diagrams: 06/19/21 06:18 06/19/21 06:18 Progress Note: A&P Assessment and plan (1) Orthostatic hypotension: Status: Acute Assessment and Plan: 76 female with orthostatic hypotension. On midodrine and fludrocortisone. Monitor potassium closely. Sleep at angle of 30-40 degrees. Compression stockings. Fall Risk Details Current Medications: Current Medications Generic Name Dose Route Start Last Admin Trade Name Freq PRN Reason Stop Dose Admin Acetaminophen 650 mg 06/18/21 23:57 Acetaminophen 325 Mg Tablet PO Q6H PRN Pain, Mild (Pain Scale 1-3) Docusate Sodium 100 mg 06/18/21 23:57 06/23/21 09:59 Docusate Sodium 100 Mg Capsule PO 100 mg DAILY PRN Administration Constipation Docusate Sodium 100 mg 06/23/21 21:00 06/25/21 09:04 Docusate Sodium 100 Mg Capsule PO 100 mg BID TODD Administration Fludrocortisone Acetate 0.1 mg 06/23/21 11:15 06/25/21 09:04 Fludrocortisone Acetate 0.1 Mg Tablet PO 0.1 mg DAILY TODD Administration Heparin Sodium (Porcine) 5,000 unit 06/18/21 23:57 06/25/21 01:14 Heparin Sodium,Porcine 5,000 Unit/Ml Vial SUBCUT 5,000 unit Q12H TODD Administration Levothyroxine Sodium 100 mcg 06/23/21 06:00 06/25/21 06:28 Levothyroxine Sodium 100 Mcg Tablet PO 100 mcg DAILY@0600 TODD Administration Midodrine 2.5 mg 06/21/21 15:00 06/25/21 09:04 Midodrine Hcl 2.5 Mg Tablet PO 2.5 mg TID TODD Administration Ondansetron HCl 4 mg 06/18/21 23:57 Ondansetron Hcl 4 Mg/2 Ml Vial IVPUSH Q8H PRN Nausea and Vomiting Sodium Chloride 3 ml 06/19/21 00:00 06/25/21 09:04 0.9 % Sodium Chloride Flush 3 Ml Syringe IVFLUSH 3 ml QSHIFT TODD Administration Time Spent With Patient Time: Total time spent is greater than 50% in coordination of care (as documented) at patient's floor/unit and/or counseling patient: Time with patient: 15 - 24 minutes Progress Note: Quality Stroke Does the patient have a stroke diagnosis?: No Procedures Date of Service Date of Service: 06/25/21
--- NOTE | 2021-06-25 15:39 | MHC.CM.PN ---
[facility] WANTS TO SEE HOW PATIENT DOES TOMORROW INSURANCE IS ASKING TO SEE HOW PATIENT TOLERATES STANDING AND WORKING WITH PHYSICAL THERAPY. MD NOTIFIED OF AVOIDABLE DELAY REASONS
[2021-06-26] VITALS (7 sets, daily range): BP systolic 98–145; BP diastolic 49–77; PULSE 60–72; RESP 16–18; TEMP 35.8–36.8; O2SAT 96–98
[2021-06-26] MEDS: Heparin Sodium,Porcine 5,000 UNIT/ML VIAL 5000 UNIT SUBCUT ×2 (00:35→12:25)
[2021-06-26] MEDS: Levothyroxine Sodium 100 MCG TABLET PO (05:50)
[2021-06-26] MEDS: 0.9 % Sodium Chloride Flush 3 ML SYRINGE IVFLUSH (08:07)
[2021-06-26] MEDS: Fludrocortisone Acetate 0.1 MG TABLET PO (08:07)
[2021-06-26] MEDS: Docusate Sodium 100 MG CAPSULE PO (08:07)
[2021-06-26] MEDS: Midodrine HCl 2.5 MG TABLET PO (08:08)
[2021-06-26 09:26] LABS: Metanephrine, Free <25 pg/mL (<=57); Normetanephrines, Free 29 pg/mL (<=148); Total Metanephrine, Free 29 pg/mL (<=205)
--- NOTE | 2021-06-26 10:46 | PM.PNNEP ---
Subjective Subjective Date of Service: 06/26/21 Principal diagnosis: OH Interval history: Seen and examined, events noted Physical Exam Vital Signs: Vital Signs: Last Vital Signs Temp 96.8 F 06/26/21 08:34 Pulse 62 06/26/21 09:43 Resp 18 06/26/21 08:34 BP 126/53 L 06/26/21 09:43 Pulse Ox 98 06/26/21 08:34 Body Mass Index 25.0 Resp: Effort & Inspection: able to speak in complete sentences Auscultation: bronchial breath sounds bilateral Cardio: Jugular venous distension: no JVD Objective Data Labs CBC & Chem 7: 06/19/21 06:18 06/19/21 06:18 Labs: Laboratory Results - last 24 hr 06/21/21 11:54 Plasma Free Metaneph <25 Plasma Free Normeta 29 Plas Total Metaneph 29 Microbiology Microbiology Results: Microbiology 06/18/21 18:25 Urine clean catch - Urine dunbar top Urine Culture - Final No growth. Procedures Date of Service Date of Service: 06/26/21 Assessment & Plan Assessment and plan (1) Supine hypertension: Status: Acute (2) Orthostatic hypotension: Status: Acute Assessment and Plan: Severe Orthostatic Hypotension with supine HTN ( SHOH) Severity of OH is dramatic with lack of incr HR and marked drop in BP with standing Recent ECHO does not show evid of LVOT Her BPs seem to be doing bettter based on RN flow sheet REC: cont florineph and will look to titrae up; cont midrdine, unable to treat supine HTN, may consider referral to [facility] in [place] given severity of OH and degree of disability assoc with it to see if they have any other rec such as a trial of doxidropa ? She will need close outpt monitoring and we can cosnder a 24 hr ABPM as outpt Time Spent With Patient Time: Total time spent is greater than 50% in coordination of care (as documented) at patient's floor/unit and/or counseling patient: Progress Note: Quality Stroke Does the patient have a stroke diagnosis?: No
--- NOTE | 2021-06-26 11:54 | MHC.CM.PN ---
Addendum entered by Tala Tapia 06/26/21 11:55: HVNA MADE AWARE TO FOLLOW FOR SERVICE NEEDS FROM [facility] Original Note: PATIENT TO DC TO [facility] TODAY FOR [address] [facility]. CARRIE WILLIAM JR ([phone]), PATIENT, RN, AND UNIT AWARE OF PLAN. IMM 06/25 IN CHART [facility] HAS AUTHORIZED FIVE DAY STAY AT SNF.
[2021-06-26 12:18] LABS: Influenza A PCR NEGATIVE (Negative); Influenza B PCR NEGATIVE (Negative); Resp Syncy Virus RNA Qual PCR NEGATIVE (Negative); SARS COV2 PCR INHOUSE NEGATIVE (Negative)
--- NOTE | 2021-06-26 12:23 | PM.DS ---
DS: Providers Provider Date of Service: 06/24/21 Date of admission: 06/18/21 23:00 Primary care physician: Jones Martinez MD Consults: 06/19/21 00:05 Consult to Cardiology Routine Consulting Provider: Bhavin Curiel Reason for consultation: elevated trop Has provider been notified: Yes 06/20/21 11:31 Consult to Nephrology Routine Consulting Provider: Manny Maravilla Reason for consultation: PODS/supine hypertension Has provider been notified: No 06/21/21 07:49 Consult to Nephrology Routine Consulting Provider: Vasquez Betancourt Reason for consultation: supine htn Has provider been notified: No DS: Diagnosis Discharge Diagnosis (1) Supine hypertension: Status: Acute (2) Orthostatic hypotension: Status: Acute DS: Medications Discharge Medications Home Medications: Home Medications Medication Instructions Recorded Confirmed levothyroxine 100 mcg tablet 1 tab PO DAILY 06/18/21 06/18/21 Previous Rx's Medication Instructions Recorded fludrocortisone 0.1 mg tablet 0.1 mg PO DAILY #30 tab 06/24/21 midodrine 2.5 mg tablet 2.5 mg PO TID #90 tab 06/24/21 DS: Summary Hospital Course Hospital Course: History of presenting illness Chief Complaint: Dizziness and fall Female with past medical history of chronic dizziness and hypothyroidism who presents to the hospital after experiencing a fall during a dizzy spell.? Patient reports that she has been chronic dizzy but has progressively worsened over the last few months.? Denies any vertigo, no chest pain, no palpitations, denies any nausea or vomiting associated with this dizziness, no change in vision and no hearing loss or tinnitus.? She reports that today she went to grab something from the Fridge felt very dizzy and weak and brought herself to the floor without falling on her back or injuring her head.? Patient reports no loss of consciousness, no palpitations prior or post this episode. She denies any abdominal pain, no urinary symptoms, no diarrhea constipation, reports that she eats and hydrates well but reports that her son does not believe she eats enough, she reports that she has small portions and usually eats half a sandwich for lunch and small amounts for other meals. Patient reports that she takes salt and meclizine for her history of dizziness with no improvement. On arrival to the ED hemodynamically stable but did have significant positive orthostatic vitals her burst pressure on supine was 190/82, blood pressure dropped to 167/70 to on sitting, blood pressure further significantly dropped to 93/45 on standing.? Patient received 3 L of IV fluids in the ED and now blood pressures in the 130s over 70s supine In ED labs were drawn which showed an elevated troponin initially 7.6 and increased to a seen 18.7, positive UA for leukocyte Estrace and WBC Cardiology was consulted and patient will be admitted under observation ?Imaging including head CT, chest x-ray, and hip pelvic x-ray were all negative Hospital course 76-year-old female with history of chronic dizziness who presents to the hospital after a fall found to have significant orthostatic hypotension and dizziness, patient admitted to telemetry unit with a diagnosis of supine hypertension with significant orthostatic hypotension on reviewing old records it seems that patient has chronic dizziness 5 being followed by transcription coordinator Dr. Toni Brumfield, there was a concern for port syndrome, patient was tried on salt tablets and Jonnie stockings with no improvement, in-hospital patient was treated with IV fluids, subsequently placed on Florinef and midodrine 2.5 mg t.i.d. patient was followed closely by Cardiology and echocardiogram was obtained that showed EF of 60% no evidence of regional wall motion abnormality and there was no obstruction to outflow, carotid ultrasound showed no significant stenosis, tele monitor showed no arrhythmia, TSH and cortisol are within normal range, patient remains symptomatic with dizziness and orthostatic hypotension she has been recommended to continue Jonnie stockings to sleep with the head up And to have continued outpatient follow-up with the Nephrology Dr. Maravilla, serum metanephrine is pending. She had elevated troponins with normal EKG and normal echo therefore she was not diagnosed to have acute coronary syndrome. In regard to hypothyroidism she has been continued on Synthroid. Time Spent with Patient Time attestation: Total time spent providing and/or coordinating discharge services: Discharge coordination time: Greater than 30 minutes Quality: Stroke Does the patient have a stroke diagnosis?: No Physical Exam Vital Signs: Vital Signs: Last Vital Signs Temp 97.7 F 06/24/21 08:00 Pulse 67 06/24/21 10:29 Resp 18 06/24/21 08:00 BP 112/57 L 06/24/21 10:29 Pulse Ox 97 06/24/21 10:29 Body Mass Index 25.0 General? resting in bed, dizzy Neck supple ,no JVD. CVS? regular rate rhythm, Respiratory lungs clear to auscultation, no respiratory distress, no wheeze, no rhonchi. Gastrointestinal abdomen soft, nontender, bowel sounds audible, no guarding , no rigidity. Extremities no edema. Neuro nonfocal , speech clear, face symmetrical, moving all 4 extremities Skin no rash Discharge Plan Discharge Patient Disposition: er [facility] Discharge Diagnosis: Supine hypertension Orthostatic hypotension Dizziness Referrals: Jones Martinez MD [Primary Care Provider] - 1 Week Discharge Medications: New midodrine 2.5 mg Tablet 2.5 mg PO TID Qty: 90 RF: 0 fludrocortisone 0.1 mg Tablet 0.1 mg PO DAILY Qty: 30 RF: 0 Continued levothyroxine 100 mcg tablet 1 tab PO DAILY RF: 0 Discontinued meclizine 12.5 mg tablet 1 tab PO TID PRN (Reason: dizziness) RF: 0 Discharge Orders: Discharge Order (Routine); Ordered 06/24/21 Ordered By: Niraj Alejandra Diet: advance to usual diet Activity on Discharge: As tolerated Stand Alone Forms: Patient Portal Discharge page Care Plan Goals: Supine hypertension with severe orthostatic hypotension, continue Jonnie stockings, my to drain and Florinef, sleep with the head up at 45 degree angle If noted to have significant supine hypertension sit up to improve the blood pressure, stand carefully due to significant hypotension and high fall risk. Health Concerns: Hypothyroidism continue home medication Plan of Treatment: Outpatient follow-up with primary care physician and Nephrology Assessment: As above
--- NOTE | 2021-06-26 12:53 | MHC.CLN ---
NUTRITION CONSULT PATIENT SCHEDULED FOR DISCHARGE TODAY TO FACILITY. NUTRITION CONSULT DUE TO WEAKNESS. DIET=REGULAR. MOST RECENT INTAKE AT MEALS USUALLY 100%. NO ADDITIONAL NUTRITION INTERVENTIONS.
== END 2021-06-26 13:00 | disposition skilled nursing facility (03) | DRG 312 ==
LOC: HO.ED 22:09 → HO.EDOVER 23:29 → HO.S3 06-19
PROVIDERS: Hospitalist; Physician Assistant Medical; Admitting Provider Internal Medicine; Emergency Provider Emergency Medicine Emergency Medical Services; PCP Internal Medicine; Visit Provider Internal Medicine
DX: I95.1 Orthostatic hypotension (principal); E03.9 Hypothyroidism, unspecified; I25.10 Atherosclerotic heart disease of native coronary artery without angina pectoris; Z20.822 Contact with and (suspected) exposure to COVID-19; Z79.890 Hormone replacement therapy; Z79.899 Other long term (current) drug therapy
CPT/HCPCS: 0241U; 36415; 70450; 71045; 73502; 80048; 80076; 81001; 82533; 83735; 83835; 84443; 84484; 85025; 87086; 87635; 93005; 93306; 93880; 96360; 96361; 97110; 97116; 97162; 97530; 99205; 99285; 99291; J0696

== ENCOUNTER 2021-06-29 06:40 | Outpatient (REF) | payer MEDICARE, SELFPAY ==
[2021-06-29 07:14] LABS: Hematocrit 34.2 % (37-47); Mean Corpuscular HGB Conc 32.2 g/dl (31.0-35.0); Mean Corpuscular Hemoglobin 29.1 pg (27.0-33.0); Mean Corpuscular Volume 90.5 fL (80-98); Mean Platelet Volume 11.6 fL (9.4-12.3); Platelet Count 142 X10*3/uL (160-400); Red Blood Count 3.78 X10*6/uL (4.20-5.50); White Blood Count 5.5 X10*3/uL (4.8-10.8)
[2021-06-29 07:35] LABS: Alanine Aminotransferase 36 U/L (0-31); Albumin Level 3.3 g/dL (3.5-5.0); Alkaline Phosphatase 64 U/L (39-117); Anion Gap 13 (12-20); Aspartate Amino Transferase 34 U/L (5-31); Bilirubin Total 0.2 mg/dL (0.0-1.0); Blood Urea Nitrogen 18 mg/dL (9-16); Calcium 8.7 mg/dL (8.4-10.2); Carbon Dioxide 25 mmol/L (22-29); Chloride 109 mmol/L (96-108); Estimated Glomerular Filt Rate > 60; Glucose Random 75 mg/dL (60-115); Potassium 3.6 mmol/L (3.3-5.1); Sodium 143 mmol/L (135-145); Total Protein 5.7 g/dL (6.5-8.0)
== END 2021-06-29 06:41 | disposition home or self-care (01) ==
LOC: HO.MMNH1L 06:40
PROVIDERS: Visit Provider Family Medicine
DX: I10 Essential (primary) hypertension (principal); R42 Dizziness and giddiness; E03.9 Hypothyroidism, unspecified
CPT/HCPCS: 36415; 80053; 85027

== ENCOUNTER 2021-07-06 00:32 | Outpatient (REF) | payer MEDICARE, SELFPAY ==
[2021-07-06 06:50] LABS: Hematocrit 34.2 % (37-47); Hemoglobin 10.8 g/dl (12.0-16.0); Mean Corpuscular HGB Conc 31.6 g/dl (31.0-35.0); Mean Corpuscular Hemoglobin 28.6 pg (27.0-33.0); Mean Corpuscular Volume 90.5 fL (80-98); Mean Platelet Volume 11.9 fL (9.4-12.3); Platelet Count 158 X10*3/uL (160-400); Red Blood Count 3.78 X10*6/uL (4.20-5.50); Red Cell Distribution Width 16.3 % (11.0-16.0); White Blood Count 5.3 X10*3/uL (4.8-10.8)
[2021-07-06 07:09] LABS: Anion Gap 15 (12-20); Blood Urea Nitrogen 20 mg/dL (9-16); Calcium 8.7 mg/dL (8.4-10.2); Carbon Dioxide 24 mmol/L (22-29); Chloride 108 mmol/L (96-108); Estimated Glomerular Filt Rate 56; Glucose Random 88 mg/dL (60-115); Potassium 3.8 mmol/L (3.3-5.1); Sodium 143 mmol/L (135-145)
== END 2021-07-06 00:33 | disposition home or self-care (01) ==
LOC: HO.MMNH1L 00:32
PROVIDERS: Visit Provider Family Medicine
DX: I10 Essential (primary) hypertension (principal); R42 Dizziness and giddiness; E03.9 Hypothyroidism, unspecified
CPT/HCPCS: 36415; 80048; 85027

== ENCOUNTER 2021-07-13 05:00 | Outpatient (REF) | payer MEDICARE, SELFPAY ==
[2021-07-13 07:08] LABS: Hematocrit 33.8 % (37-47); Hemoglobin 10.9 g/dl (12.0-16.0); Mean Corpuscular HGB Conc 32.2 g/dl (31.0-35.0); Mean Corpuscular Hemoglobin 29.3 pg (27.0-33.0); Mean Corpuscular Volume 90.9 fL (80-98); Mean Platelet Volume 11.9 fL (9.4-12.3); Platelet Count 151 X10*3/uL (160-400); Red Blood Count 3.72 X10*6/uL (4.20-5.50); Red Cell Distribution Width 16.4 % (11.0-16.0); White Blood Count 5.1 X10*3/uL (4.8-10.8)
[2021-07-13 07:37] LABS: Anion Gap 12 (12-20); Blood Urea Nitrogen 17 mg/dL (9-16); Calcium 8.8 mg/dL (8.4-10.2); Carbon Dioxide 27 mmol/L (22-29); Chloride 108 mmol/L (96-108); Estimated Glomerular Filt Rate > 60; Glucose Random 70 mg/dL (60-115); Potassium 3.4 mmol/L (3.3-5.1); Sodium 144 mmol/L (135-145)
== END 2021-07-13 05:01 | disposition home or self-care (01) ==
LOC: HO.MMNH1L 05:00
PROVIDERS: Visit Provider Family Medicine
DX: I10 Essential (primary) hypertension (principal); E03.9 Hypothyroidism, unspecified; R55 Syncope and collapse
CPT/HCPCS: 36415; 80048; 85027

== ENCOUNTER → 2021-07-14 12:45 | Outpatient (BNVA) | payer MEDICARE, SELFPAY | PROVIDERS: Visit Provider Internal Medicine | DX: I95.1 Orthostatic hypotension (principal); I10 Essential (primary) hypertension | CPT/HCPCS: 99212 ==

== ENCOUNTER 2021-07-20 01:06 | Outpatient (REF) | payer MEDICARE, SELFPAY | END 2021-07-20 01:07 | disposition home or self-care (01) | LOC: HO.MMNH1L 01:06 | PROVIDERS: Visit Provider Family Medicine | DX: Z13.89 Encounter for screening for other disorder (principal) ==

== ENCOUNTER 2021-07-22 05:07 | Outpatient (REF) | payer MEDICARE, SELFPAY ==
[2021-07-22 05:37] LABS: Basophils Percent Auto 0.2 % (0-2); Hemoglobin 11.7 g/dl (12.0-16.0); Imm Gran Abs Auto 0.02 X10*3/uL (0.00-0.03); Imm Gran Pct Auto 0.4 % (0.0-0.4); PLT CLUMP 1; SCAN SMEAR FLAG 1
[2021-07-22 05:39] LABS: Eosinophils Absolute Auto 0.2 X10*3/uL (0.0-0.4); Eosinophils Percent Auto 4.3 % (0-4); Hematocrit 35.8 % (37-47); Lymphocytes Absolute Auto 1.6 X10*3/uL (1.2-4.9); Lymphocytes Percent Auto 30.8 % (20-40); Mean Corpuscular HGB Conc 32.7 g/dl (31.0-35.0); Mean Corpuscular Hemoglobin 29.5 pg (27.0-33.0); Mean Corpuscular Volume 90.2 fL (80-98); Mean Platelet Volume 11.9 fL (9.4-12.3); Monocytes Absolute Auto 0.6 X10*3/uL (0.1-1.2); Monocytes Percent Auto 10.9 % (2-11); Neutrophils Absolute Auto 2.7 X10*3/uL (2.0-8.3); Neutrophils Percent Auto 53.4 % (45-73); Red Blood Count 3.97 X10*6/uL (4.20-5.50); Red Cell Distribution Width 16.1 % (11.0-16.0); White Blood Count 5.1 X10*3/uL (4.8-10.8)
[2021-07-22 05:40] LABS: MANUAL DIFF FLAG NO; Platelet Count 138 X10*3/uL (160-400)
[2021-07-22 05:56] LABS: Alanine Aminotransferase 21 U/L (0-31); Albumin Level 3.5 g/dL (3.5-5.0); Alkaline Phosphatase 72 U/L (39-117); Anion Gap 10 (12-20); Aspartate Amino Transferase 24 U/L (5-31); Bilirubin Total 0.5 mg/dL (0.0-1.0); Blood Urea Nitrogen 16 mg/dL (9-16); Calcium 9.3 mg/dL (8.4-10.2); Carbon Dioxide 29 mmol/L (22-29); Chloride 107 mmol/L (96-108); Estimated Glomerular Filt Rate > 60; Glucose Random 80 mg/dL (60-115); Potassium 3.7 mmol/L (3.3-5.1); Sodium 142 mmol/L (135-145); Total Protein 6.1 g/dL (6.5-8.0)
== END 2021-07-22 05:08 | disposition home or self-care (01) ==
LOC: HO.MMNH1L 05:07
PROVIDERS: Visit Provider Family Medicine
DX: I10 Essential (primary) hypertension (principal); N39.0 Urinary tract infection, site not specified
CPT/HCPCS: 36415; 80053; 85025

== ENCOUNTER 2021-07-24 20:58 | Emergency (ER) | payer MEDICARE, SELFPAY ==
--- NOTE | ~2021-07-24 | XR_ITS ---
EXAMINATION: XR KNEE, LEFT CLINICAL INFORMATION: Pain status post fall COMPARISON: None TECHNIQUE: Four views of the left knee. FINDINGS: Bones and soft tissues are notable for minor patella spurring.. No fracture or joint effusion. Alignment is anatomic. Joint spaces are well maintained. No abnormal soft tissue calcification. XR/XR knee LT 2V IMPRESSION: No deformity or fracture.
--- NOTE | ~2021-07-24 | CT_ITS ---
EXAMINATION: CT HEAD WITHOUT CONTRAST CT CERVICAL SPINE WITHOUT CONTRAST CLINICAL INFORMATION: Fall. COMPARISON: CT head 06/18/2021 TECHNIQUE: Imaging was performed from the skull base to vertex without intravenous administration of contrast. In addition, helical noncontrast CT imaging was acquired through the cervical spine and source images were reviewed along with axial reconstructions and sagittal and coronal MPRs. [This CT examination was performed using dose optimization techniques as appropriate, variously including the following: *Automated exposure control *Adjustment of mA and/or kV according to patient size (this includes techniques or standardized protocols for targeted exams where dose is matched to indication/reason for exam; i.e. extremities or head) *Use of iterative reconstruction technique] DLP: 1027 mGy-cm FINDINGS: HEAD: No intracranial mass, hemorrhage, or midline shift is visualized. There is generalized global volume loss. There is mild prominence of the ventricles and the sulci . There is mild hypodensity of the periventricular white matter due to chronic small vessel ischemic disease. There are vascular calcifications of the internal carotid arteries bilaterally. No extra-axial collections are identified. The paranasal sinuses and mastoid air cells are well aerated. CERVICAL SPINE: There is no evidence of acute cervical spine fracture. Vertebral bodies remain normal in height. Cervical vertebrae have normal alignment. Cervical disc heights are normal. The facet joints are normal. No pre- or paravertebral soft tissue abnormality is identified. Limited assessment of the lung apices is unremarkable. CT/CT head/brain wo con IMPRESSION: 1. No acute intracranial pathology. 2. No CT evidence of acute cervical spine fracture or traumatic subluxation
--- NOTE | ~2021-07-24 | CT_ITS ---
EXAMINATION: CT HEAD WITHOUT CONTRAST CT CERVICAL SPINE WITHOUT CONTRAST CLINICAL INFORMATION: Fall. COMPARISON: CT head 06/18/2021 TECHNIQUE: Imaging was performed from the skull base to vertex without intravenous administration of contrast. In addition, helical noncontrast CT imaging was acquired through the cervical spine and source images were reviewed along with axial reconstructions and sagittal and coronal MPRs. [This CT examination was performed using dose optimization techniques as appropriate, variously including the following: *Automated exposure control *Adjustment of mA and/or kV according to patient size (this includes techniques or standardized protocols for targeted exams where dose is matched to indication/reason for exam; i.e. extremities or head) *Use of iterative reconstruction technique] DLP: 1027 mGy-cm FINDINGS: HEAD: No intracranial mass, hemorrhage, or midline shift is visualized. There is generalized global volume loss. There is mild prominence of the ventricles and the sulci . There is mild hypodensity of the periventricular white matter due to chronic small vessel ischemic disease. There are vascular calcifications of the internal carotid arteries bilaterally. No extra-axial collections are identified. The paranasal sinuses and mastoid air cells are well aerated. CERVICAL SPINE: There is no evidence of acute cervical spine fracture. Vertebral bodies remain normal in height. Cervical vertebrae have normal alignment. Cervical disc heights are normal. The facet joints are normal. No pre- or paravertebral soft tissue abnormality is identified. Limited assessment of the lung apices is unremarkable. CT/CT cervical spine wo con IMPRESSION: 1. No acute intracranial pathology. 2. No CT evidence of acute cervical spine fracture or traumatic subluxation
[2021-07-24 21:08] VITALS: BP 176/98; BP 196/83; PULSE 88; PULSE 89; RESP 18; TEMP 36.8; O2SAT 100; O2SAT 96; BMI 25.7
--- NOTE | 2021-07-24 21:55 | ED.FALL ---
HPI - Fall General Chief Complaint: Fall Stated Complaint: fall Time Seen by Provider: 07/24/21 21:55 Source: patient Mode of arrival: ambulatory History of Present Illness HPI Narrative: Patient brought by [facility] for unwitnessed fall when patient was sitting in the wheelchair try to get up. Tio Man patient was talking to her son on the phone in residential , nurse left to get a another phone and patient tried to get up from the wheelchair and fell but was not seen by staff , found on the floor patient has significant orthostatic hypertension and dementia and Parkinson disease forgetful about the events no significant injuries noticed complaining of left knee pain Related Data Home Medications Medication Instructions Recorded Confirmed levothyroxine 100 mcg tablet 1 tab PO DAILY 06/18/21 07/14/21 acetaminophen 325 mg capsule 650 mg PO Q4H PRN 07/14/21 07/14/21 bisacodyl 10 mg rectal suppository 10 mg IA DAILY PRN 07/14/21 07/14/21 (Dulcolax (bisacodyl)) meclizine 12.5 mg tablet 12.5 mg PO TID PRN 07/14/21 07/14/21 Previous Rx's Medication Instructions Recorded fludrocortisone 0.1 mg tablet 0.1 mg PO DAILY #30 tab 06/24/21 midodrine 2.5 mg tablet 2.5 mg PO TID #90 tab 06/24/21 Allergies Allergy/AdvReac Type Severity Reaction Status Date / Time No Known Allergies Allergy Verified 07/14/21 13:12 Review of Systems Review of Systems: Yes Unobtainable due to mental status PMFSH Past Medical History Medical History Dizziness Hypothyroid Surgical History H/O: hemorrhoidectomy History of intestinal surgery Family History Family History Father CAD (coronary artery disease) Social History Social History Household Members: None Housing: House Do you presently have visiting nurse or other home services: No Patient Tobacco Use Status: Never used Tobacco Advance Directives: No Advance Directives Information Provided: Yes service: No Current occupational status: retired Physical Exam Vital Signs: Vital Signs: Last Vital Signs Temp 97.5 F 07/25/21 00:00 Pulse 89 07/25/21 00:00 Resp 16 07/25/21 00:00 BP 161/67 H 07/25/21 00:00 Pulse Ox 99 07/25/21 00:00 Body Mass Index 25.7 Appearance: Alert. Oriented X1-2 forgetful with dementia not in any distress Eyes: PERRLA, No Nystagmus ENT: Pharynx normal. Oral Mucosa moist Neck: Normal inspection. Neck supple. No midline tenderness in cervical collar CVS: Normal heart rate and rhythm. Pulses normal. Respiratory: No respiratory distress. Equal air entry bilateral, no wheezing/rales/rhonchi Abdomen: Soft and nontender. Bowel sounds are present, no mass palpable, no CVA tenderness Skin: Skin warm and dry. Normal skin color. Normal skin turgor. Extremities: No lower extremity edema. No calf tenderness mild tenderness left knee no effusion or deformity Neuro: Oriented X 3. No motor deficit. MDM - Fall MDM Narrative Medical decision making narrative: Patient's CT head, CT C-spine, x-ray left knee negative for any acute fracture or acute pathology will discharge patient back to residential Discharge Plan Discharge Clinical Impression: Fall Qualifiers: Encounter type: initial encounter Qualified Code(s): W19.XXXA - Unspecified fall, initial encounter Patient Disposition: Xfer SNF Transfer Details: To residential Instructions: Fall Prevention for Older Adults (ED) Additional Instructions: Patient's CT scan of the C-spine and head is negative left knee x-ray also negative Care and cautions as advised Prescriptions: No Action levothyroxine 100 mcg tablet 1 tab PO DAILY RF: 0 midodrine 2.5 mg Tablet 2.5 mg PO TID Qty: 90 RF: 0 fludrocortisone 0.1 mg Tablet 0.1 mg PO DAILY Qty: 30 RF: 0 meclizine 12.5 mg tablet 12.5 mg PO TID PRNRF: 0 acetaminophen 325 mg capsule 650 mg PO Q4H PRNRF: 0 bisacodyl [Dulcolax (bisacodyl)] 10 mg suppository 10 mg IA DAILY PRNRF: 0 Interventions: ED Discharge Assessment Last Done: 07/24/21 23:40 Discharge Date/Time: 07/25/21 00:00
[2021-07-25] VITALS: BP 161/67; PULSE 89; RESP 16; TEMP 36.4; O2SAT 99
== END 2021-07-25 | disposition skilled nursing facility (03) ==
PROVIDERS: Emergency Provider Internal Medicine
DX: M25.562 Pain in left knee (principal); Z91.81 History of falling; G20 Parkinson's disease; F02.80 Dementia in other diseases classified elsewhere, unspecified severity, without behavioral disturbance, psychotic disturbance, mood disturbance, and anxiety; Z79.899 Other long term (current) drug therapy
CPT/HCPCS: 70450; 72125; 73560; 99284

== ENCOUNTER 2021-07-28 21:16 | Outpatient (REF) | payer MEDICARE, SELFPAY ==
[2021-07-28 07:12] LABS: Hematocrit 34.7 % (37-47); Hemoglobin 11.3 g/dl (12.0-16.0); Mean Corpuscular HGB Conc 32.6 g/dl (31.0-35.0); Mean Corpuscular Hemoglobin 29.5 pg (27.0-33.0); Mean Corpuscular Volume 90.6 fL (80-98); Mean Platelet Volume 11.9 fL (9.4-12.3); Platelet Count 154 X10*3/uL (160-400); Red Blood Count 3.83 X10*6/uL (4.20-5.50); Red Cell Distribution Width 16.3 % (11.0-16.0); White Blood Count 5.5 X10*3/uL (4.8-10.8)
[2021-07-28 08:11] LABS: Anion Gap 11 (12-20); Blood Urea Nitrogen 17 mg/dL (9-16); Calcium 8.7 mg/dL (8.4-10.2); Carbon Dioxide 28 mmol/L (22-29); Chloride 107 mmol/L (96-108); Estimated Glomerular Filt Rate > 60; Glucose Random 78 mg/dL (60-115); Potassium 3.9 mmol/L (3.3-5.1); Sodium 142 mmol/L (135-145)
== END 2021-07-28 21:17 | disposition home or self-care (01) ==
LOC: HO.MMNH1L 21:16
PROVIDERS: Visit Provider Family Medicine
DX: E03.9 Hypothyroidism, unspecified (principal); R42 Dizziness and giddiness; I10 Essential (primary) hypertension
CPT/HCPCS: 36415; 80048; 85027

== ENCOUNTER 2021-08-03 | Outpatient (REF) | payer MEDICARE, SELFPAY ==
[2021-08-03 06:27] LABS: Hematocrit 31.7 % (37-47); Hemoglobin 10.3 g/dl (12.0-16.0); Mean Corpuscular HGB Conc 32.5 g/dl (31.0-35.0); Mean Corpuscular Hemoglobin 29.3 pg (27.0-33.0); Mean Corpuscular Volume 90.3 fL (80-98); Mean Platelet Volume 11.1 fL (9.4-12.3); Platelet Count 173 X10*3/uL (160-400); Red Blood Count 3.51 X10*6/uL (4.20-5.50); Red Cell Distribution Width 16.3 % (11.0-16.0); White Blood Count 5.4 X10*3/uL (4.8-10.8)
[2021-08-03 07:00] LABS: Anion Gap 10 (12-20); Blood Urea Nitrogen 16 mg/dL (9-16); Calcium 8.7 mg/dL (8.4-10.2); Carbon Dioxide 27 mmol/L (22-29); Chloride 110 mmol/L (96-108); Estimated Glomerular Filt Rate > 60; Glucose Random 96 mg/dL (60-115); Potassium 3.8 mmol/L (3.3-5.1); Sodium 143 mmol/L (135-145)
== END 2021-08-03 00:01 | disposition home or self-care (01) ==
LOC: HO.MMNH1L
PROVIDERS: Visit Provider Family Medicine
DX: I10 Essential (primary) hypertension (principal); N39.0 Urinary tract infection, site not specified
CPT/HCPCS: 36415; 80048; 85027

== ENCOUNTER 2021-08-10 00:34 | Outpatient (REF) | payer MEDICARE, SELFPAY ==
[2021-08-10 06:51] LABS: Hematocrit 33.7 % (37-47); Hemoglobin 10.8 g/dl (12.0-16.0); Mean Corpuscular Hemoglobin 29.2 pg (27.0-33.0); Mean Corpuscular Volume 91.1 fL (80-98); Mean Platelet Volume 11.3 fL (9.4-12.3); Platelet Count 157 X10*3/uL (160-400); Red Cell Distribution Width 15.9 % (11.0-16.0); White Blood Count 5.4 X10*3/uL (4.8-10.8)
[2021-08-10 07:12] LABS: Anion Gap 11 (12-20); Blood Urea Nitrogen 15 mg/dL (9-16); Calcium 8.6 mg/dL (8.4-10.2); Carbon Dioxide 27 mmol/L (22-29); Chloride 109 mmol/L (96-108); Estimated Glomerular Filt Rate > 60; Glucose Random 78 mg/dL (60-115); Potassium 3.8 mmol/L (3.3-5.1); Sodium 143 mmol/L (135-145)
== END 2021-08-10 00:35 | disposition home or self-care (01) ==
LOC: HO.MMNH1L 00:34
PROVIDERS: Visit Provider Family Medicine
DX: E03.9 Hypothyroidism, unspecified (principal); N39.0 Urinary tract infection, site not specified
CPT/HCPCS: 36415; 80048; 85027

== ENCOUNTER 2021-08-17 00:20 | Outpatient (REF) | payer MEDICARE, SELFPAY | END 2021-08-17 00:21 | disposition home or self-care (01) | LOC: HO.MMNH1L 00:20 | PROVIDERS: Visit Provider Family Medicine | DX: Z13.89 Encounter for screening for other disorder (principal) ==